=== PATIENT | female | born 1995 | race Caucasian/White ===

== ENCOUNTER 2021-10-18 13:18 | Emergency (ER) | payer BC, SELFPAY ==
[2021-10-18 13:39] VITALS: BP 135/80; PULSE 66; RESP 16; TEMP 36.7; O2SAT 99; BMI 19.4
--- NOTE | 2021-10-18 14:10 | ED_ITS ---
HPI - General Adult General Time Seen by Provider: 14:10 Date Seen: 10/18/21 Chief complaint: Vaginal Bleeding Stated complaint: Miscarriage Time Seen by Provider: 10/18/21 14:09 Source: patient and RN notes reviewed Mode of arrival: ambulatory Limitations: no limitations History of Present Illness HPI narrative: Kalpesh is a 26-year-old female with vaginal bleeding in early . This is her 1st . Her last menstrual period was September 05. She started bleeding 2 days ago. It is about what she would consider moderate to heavy. There has been a few small clots. Today she started having left lower quadrant abdominal pain. She presented to Urgent Care and was referred here due to the pain. She is not bleeding heavy to the point that she is feeling lightheaded or dizzy. She was referred from urgent care to get pelvic imaging. She has not had any care yet, was planning on doing her care through [facility]. No trauma, no history of STIs. Related Data Home Medications Medication Instructions Recorded Confirmed clindamycin 1 %-benzoyl peroxide 5 topical 10/18/21 10/18/21 % topical gel prenat.vits,celsa,aeo-[id number]-emtld 1 tab PO QDAY 10/18/21 10/18/21 Allergies Allergy/AdvReac Type Severity Reaction Status Date / Time No Known Drug Allergies Allergy Verified 10/18/21 12:45 Review of Systems Status of ROS: Reports: 6 or more systems reviewed and unremarkable except as noted in History and below Exam Const: Vital Signs, click to edit/add: Vital Signs - 24 hr 10/18/21 13:39 Temperature 98.0 F Pulse Rate [Right Pulse Oximeter] 66 Respiratory Rate 16 Blood Pressure [Ri ght Upper Arm] 135/80 Pulse Oximetry 99 Oxygen Delivery Me thod Room Air Documenting provider has reviewed patient's vital signs: yes Common normals: no apparent distress, average body habitus, oriented x3, no limitations, healthy appearing and alert General appearance: cooperative, comfortable and well kempt HENMT: Common normals: normocephalic, head/scalp atraumatic and hearing grossly normal bilaterally Head and scalp: normocephalic and atraumatic Eye: Common normals: PERRL, EOMs intact bilaterally, conjunctivae normal and no scleral icterus Conjunctiva: conjunctiva(e) normal Pupil: PERRL Neck & C-Spine: Common normals: full ROM, no lymphadenopathy, supple, no meningeal signs, no JVD and thyroid normal Thyroid: thyroid normal Resp: Common normals: normal respiratory effort, no retractions, no use of accessory muscles and clear to auscultation bilaterally Auscultation: clear to auscultation bilaterally Cardio: Common normals: no JVD, regular rate, regular rhythm, S1 normal heart sound, S2 normal heart sound, no gallops, no clicks and no murmurs Rate: regular rate Rhythm: regular rhythm Heart sounds: S1 normal and S2 normal GI: Common normals: Normal to inspection, nondistended, normoactive bowel sounds present, soft to palpation, no hepatosplenomegaly and no masses Palpation: soft, tender (Left lower quadrant) and no hepatosplenomegaly Extremity: Common normals: normal to inspection, full ROM, normal capillary refill, no joint enlargement, no clubbing, cyanosis or edema, no calf tenderness and no pedal edema Neuro: Common normals: oriented x3 Sensorium/orientation: alert Meningeal signs: no meningeal signs Speech: speech normal Gait (neuro): normal gait Psych: Appearance: well ket Course Course Hospital Course: Will Salagen IV, get appropriate blood work including her blood type and Rh, quantitative hCG. We will need a pelvic ultrasound to rule out ectopic and she does understand that. If this should be an ectopic , will consult with OB as management. Patient obviously is sad and tearful about this, I did share my condolences with her. At minimum, we did review that this certainly sounds to be a miscarriage. Will await are pending labs and the ultrasound to guide therapy accordingly. Reevaluation(s) Reevaluation #1: Reviewed with patient that the radiologist is just reading her pelvic ultrasound but the preliminary report is that there is no ectopic. We are still awaiting her quantitative hCG, blood type is A positive. Reviewed that she would not need RhoGAM. Time: 16:07 Vital Signs Vital signs: Initial Vital Signs Temperature 98.0 F 10/18/21 13:39 Temperature Source Temporal Artery Scan 10/18/21 13:39 Pulse Rate 66 10/18/21 13:39 Pulse Rhythm 10/18/21 13:39 Pulse Strength 3+ Normal 10/18/21 13:39 Respiratory Rate 16 10/18/21 13:39 Blood Pressure 135/80 10/18/21 13:39 Blood Pressure Mean 98 10/18/21 13:39 Blood Pressure Position Sitting 10/18/21 13:39 Pulse Oximetry 99 10/18/21 13:39 Oxygen Delivery Method 10/18/21 13:39 Vital Signs Temperature 98.0 F 10/18/21 13:39 Pulse Rate 66 10/18/21 13:39 Respiratory Rate 16 10/18/21 13:39 Blood Pressure 135/80 10/18/21 13:39 Pulse Oximetry 99 10/18/21 13:39 Oxygen Delivery Method 10/18/21 13:39 Temperature 98.0 F 10/18/21 13:39 Pulse Rate 66 10/18/21 13:39 Respiratory Rate 16 10/18/21 13:39 Blood Pressure 135/80 10/18/21 13:39 Pulse Oximetry 99 10/18/21 13:39 Oxygen Delivery Method 10/18/21 13:39 Medical Decision Making Lab Data Lab results reviewed: Yes I reviewed the patient's lab results Labs: Lab Results 10/18/21 10/18/21 10/18/21 Range/Units 14:30 14:30 14:30 WBC 5.38 (4.50-11.00) K/uL RBC 4.25 (4.00-5.20) m/uL Hgb 13.1 (12.0-16.0) gm/dL Hct 39.4 (33.0-51.0) % MCV 93 (80-100) fL MCH 31 (26-34) pg MCHC 33 (32-36) gm/dL RDW Coeff of Julian 11.5 (11.5-15.5) % Plt Count 162 (140-440) K/uL Neut % (Auto) 72.2 H (42.0-72.0) % Lymph % (Auto) 18.6 L (20-44) % [place] % (Auto) 8.2 (0.0-11.0) % Eos % (Auto) 0.2 (0.0-7.0) % Baso % (Auto) 0.6 (0.0-3.0) % Neut # (Auto) 3.90 (1.7-7.0) K/uL Lymph # (Auto) 1.00 (0.90-2.90) K/uL [place] # (Auto) 0.40 (0.00-0.90) K/UL Eos # (Auto) 0.01 (0.00-0.50) K/uL Baso # (Auto) 0.03 (0.00-0.30) K/uL Abs Immat Gran (auto) 0.01 (0.00-0.30) K/uL Sodium (135-149) mmol/L Potassium (3.6-5.1) mmol/L Chloride (96-114) mmol/L Carbon Dioxide (20-32) mmol/L BUN (5-24) mg/dL Creatinine (0.5-1.5) mg/dL Estimated Creat Clear Estimated GFR ml/min Glucose (60-115) mg/dL Calcium (8.4-10.6) mg/dL HCG, Quant 10.48 mIU/mL Blood Type A Positive 10/18/21 Range/Units 14:30 WBC (4.50-11.00) K/uL RBC (4.00-5.20) m/uL Hgb (12.0-16.0) gm/dL Hct (33.0-51.0) % MCV (80-100) fL MCH (26-34) pg MCHC (32-36) gm/dL RDW Coeff of Julian (11.5-15.5) % Plt Count (140-440) K/uL Neut % (Auto) (42.0-72.0) % Lymph % (Auto) (20-44) % [place] % (Auto) (0.0-11.0) % Eos % (Auto) (0.0-7.0) % Baso % (Auto) (0.0-3.0) % Neut # (Auto) (1.7-7.0) K/uL Lymph # (Auto) (0.90-2.90) K/uL [place] # (Auto) (0.00-0.90) K/UL Eos # (Auto) (0.00-0.50) K/uL Baso # (Auto) (0.00-0.30) K/uL Abs Immat Gran (auto) (0.00-0.30) K/uL Sodium 139 (135-149) mmol/L Potassium 3.8 (3.6-5.1) mmol/L Chloride 105 (96-114) mmol/L Carbon Dioxide 25 (20-32) mmol/L BUN 13 (5-24) mg/dL Creatinine 0.7 (0.5-1.5) mg/dL Estimated Creat Clear 103.73 Estimated GFR 121 ml/min Glucose 98 (60-115) mg/dL Calcium 9.0 (8.4-10.6) mg/dL HCG, Quant mIU/mL Blood Type Imaging Data US - abdomen: Attestation: I have reviewed the pertinent imaging results. Radiologist's impression: Patient: KALPESH SHORT Facility:?[facility] Patient ID:?[id number] Site Patient ID:?[id number]. Site :?[id number] Study:?US OB Pelvis -10/18/2021 3:30:16 PM Ordering Physician:?Laine Díaz Final Report: INDICATION: Left lower quadrant pain and bleeding. LMP 09/05/2021. Beta hCG not provided. COMPARISON: None. TECHNIQUE: 2D roberts scale and color Doppler images were acquired of the pelvis using a transabdominal and transvaginal approach. FINDINGS: Sonographic images demonstrate a normal size and smooth outer contour of the uterus. The uterus is anteverted in position. The uterus measures 7.0 cm in length by 4.5 cm in AP diameter by 5.6 cm in transverse dimension. The myometrium has uniform echotexture. The endometrial lining measures 5 mm in composite thickness. No intrauterine gestational sac identified. There is a 0.8 cm ovoid echogenic lesion in the mid endometrial canal. There are two small cystic spaces in the upper cervix which are likely nabothian cysts. The right ovary measures 3.1 x 1.4 x 1.7 cm in size and the left ovary measures 3.3 x 1.6 x 1.8 cm in size. The ovaries demonstrate normal arterial and venous blood flow on color Doppler analysis. There is a 1.7 x 1.2 x 1.3 cm hypoechoic lesion in the left ovary which likely represents a corpus luteum. No suspicious adnexal mass. Trace free fluid in the cul-de-sac. IMPRESSION: 1. No intrauterine gestational sac identified. Probable small nabothian cysts in the upper cervix. Correlate with serum beta HCG levels and follow-up imaging as clinically indicated. 2. Subcentimeter echogenic lesion in the mid endometrial canal may represent a polyp or focus of blood products. 3. 1.7 cm hypoechoic lesion in the left ovary likely represents a corpus luteum. No suspicious adnexal mass. Dictated by Amara Curran MD @ 10/18/2021 4:07:56 PM (Electronic Signature) Discharge Plan Discharge Clinical Impression: Miscarriage Condition: Stable Instructions: Miscarriage (ED) Additional Instructions: Need to schedule a clinic followup with OB in 1-2 weeks. The hCG level should be followed to make sure it is back to normal, can be reviewed with the OB Gyne follow-up. Did any point her bleeding is becoming so heavy that you are symptomatic with lightheadedness, dizziness, feeling like he could pass out, do recommend re-evaluation. Activity Level: Activity as Tolerated Discharge Diet: Regular Prescriptions: No Action clindamycin-benzoyl peroxide 1-5 % gel topical Label Comments: Apply topically to affected area(s) 2 times daily. prenat.vits,celsa,cxi-gzte-emyer Tablet 1 tab PO QDAY Follow Up/Referrals: Provider,Not a Local [Referring] - Stand Alone Forms: [employer] Info Instructions
--- NOTE | 2021-10-18 14:19 | CRLHL7_ITS ---
For Patients: As a result of the Century Cures Act, medical imaging exams and procedure reports are released immediately into your electronic medical record. You may view this report before your referring provider. If you have questions, please contact your health care provider. INDICATION: Left lower quadrant pain and bleeding. LMP 09/05/2021. Beta hCG not provided. COMPARISON: None. TECHNIQUE: 2D roberts scale and color Doppler images were acquired of the pelvis using a transabdominal and transvaginal approach. FINDINGS: Sonographic images demonstrate a normal size and smooth outer contour of the uterus. The uterus is anteverted in position. The uterus measures 7.0 cm in length by 4.5 cm in AP diameter by 5.6 cm in transverse dimension. The myometrium has uniform echotexture. The endometrial lining measures 5 mm in composite thickness. No intrauterine gestational sac identified. There is a 0.8 cm ovoid echogenic lesion in the mid endometrial canal. There are two small cystic spaces in the upper cervix which are likely nabothian cysts. The right ovary measures 3.1 x 1.4 x 1.7 cm in size and the left ovary measures 3.3 x 1.6 x 1.8 cm in size. The ovaries demonstrate normal arterial and venous blood flow on color Doppler analysis. There is a 1.7 x 1.2 x 1.3 cm hypoechoic lesion in the left ovary which likely represents a corpus luteum. No suspicious adnexal mass. Trace free fluid in the cul-de-sac. IMPRESSION: 1. No intrauterine gestational sac identified. Probable small nabothian cysts in the upper cervix. Correlate with serum beta HCG levels and follow-up imaging as clinically indicated. 2. Subcentimeter echogenic lesion in the mid endometrial canal may represent a polyp or focus of blood products. 3. 1.7 cm hypoechoic lesion in the left ovary likely represents a corpus luteum. No suspicious adnexal mass. Dictated by Amara Curran MD @ 10/18/2021 4:07:56 PM (Electronically Signed)
[2021-10-18 15:14] LABS: Chloride* 105 mmol/L (96-114); Potassium* 3.8 mmol/L (3.6-5.1); Sodium* 139 mmol/L (135-149)
[2021-10-18 15:15] LABS: Basophils Absolute Auto 0.03 K/uL (0.00-0.30); Basophils Percent Auto 0.6 % (0.0-3.0); Eosinophils Absolute Auto 0.01 K/uL (0.00-0.50); Eosinophils Percent Auto 0.2 % (0.0-7.0); Hematocrit 39.4 % (33.0-51.0); Hemoglobin* 13.1 gm/dL (12.0-16.0); Immature Granulocytes Abs Auto 0.01 K/uL (0.00-0.30); Lymphocytes Percent Auto 18.6 % (20-44); Mean Corpuscular HGB Conc 33 gm/dL (32-36); Mean Corpuscular Hemoglobin 31 pg (26-34); Mean Corpuscular Volume 93 fL (80-100); Monocytes Percent Auto 8.2 % (0.0-11.0); Neutrophils Percent Auto 72.2 % (42.0-72.0); Platelet Count* 162 K/uL (140-440); RDW Coefficient of Variation % 11.5 % (11.5-15.5); Red Blood Count 4.25 m/uL (4.00-5.20); White Blood Count* 5.38 K/uL (4.50-11.00)
[2021-10-18 15:17] LABS: Blood Urea Nitrogen* 13 mg/dL (5-24); Carbon Dioxide* 25 mmol/L (20-32); Creatinine* 0.7 mg/dL (0.5-1.5); Est. Creatinine Clearance* 103.73; Estimated Glomerular Filt Rate 121 ml/min; Glucose* 98 mg/dL (60-115)
[2021-10-18 15:29] LABS: Slide Review Reflex No
[2021-10-18 16:13] LABS: HCG Quantitative* 10.48 mIU/mL
--- NOTE | 2021-10-18 17:09 | ED.NURSE ---
1430-#20G IV established in R FA by JAIME De Paz. Bloodwork drawn from this IV at that time.
[2021-10-18 17:16] VITALS: BP 135/80; PULSE 66; RESP 16; TEMP 36.7
== END 2021-10-18 17:16 | disposition home or self-care (01) ==
PROVIDERS: Emergency Provider Family Medicine; PCP Family Medicine
DX: O03.9 Complete or unspecified spontaneous abortion without complication (principal)
CPT/HCPCS: 36415; 76801; 76817; 80048; 84702; 85025; 86900; 86901; 93976; 99284

== ENCOUNTER 2021-11-03 15:45 | Outpatient (CLI) | payer BC, SELFPAY ==
[2021-11-03 22:12] LABS: HCG Quantitative* < 2.39 mIU/mL
== END 2021-11-03 15:46 | disposition home or self-care (01) ==
LOC: LKVREF 15:46
PROVIDERS: PCP Family Medicine; Visit Provider Registered Nurse
DX: O03.9 Complete or unspecified spontaneous abortion without complication (principal)
CPT/HCPCS: 84702

== ENCOUNTER 2021-11-04 09:06 | Outpatient (CLI) | payer BC, SELFPAY | END 2021-11-04 09:07 | disposition home or self-care (01) | LOC: FRMREF 09:07 | PROVIDERS: PCP Family Medicine; Visit Provider Registered Nurse | DX: O03.9 Complete or unspecified spontaneous abortion without complication (principal) | CPT/HCPCS: 84443 ==

== ENCOUNTER 2022-03-04 08:07 | Outpatient (CLI) | payer BC, SELFPAY ==
[2022-03-04 12:56] LABS: HCG Quantitative* 34.49 mIU/mL
== END 2022-03-04 08:08 | disposition home or self-care (01) ==
LOC: LKVREF 08:09
PROVIDERS: PCP Family Medicine; Visit Provider Obstetrics & Gynecology
DX: O20.9 Hemorrhage in early pregnancy, unspecified (principal)
CPT/HCPCS: 84702

== ENCOUNTER 2022-03-06 11:28 | Outpatient (CLI) | payer BC, SELFPAY ==
[2022-03-06 12:37] LABS: HCG Quantitative* 11.46 mIU/mL
== END 2022-03-06 11:29 | disposition home or self-care (01) ==
LOC: LAB 11:34
PROVIDERS: PCP Family Medicine; Visit Provider Obstetrics & Gynecology
DX: O02.0 Blighted ovum and nonhydatidiform mole (principal)
CPT/HCPCS: 84702

== ENCOUNTER 2022-09-27 16:40 | Outpatient (CLI) | payer BC, SELFPAY ==
--- NOTE | 2022-09-27 17:00 | CRLHL7_ITS ---
For Patients: As a result of the Century Cures Act, medical imaging exams and procedure reports are released immediately into your electronic medical record. You may view this report before your referring provider. If you have questions, please contact your health care provider. INDICATION: First trimester scan, establish dates. COMPARISON: None. TECHNIQUE: Real-time roberts-scale imaging of the pelvis was performed. FINDINGS: Sonographic imaging demonstrates a single living intrauterine gestation. The embryo demonstrates a regular cardiac rate measuring 173 beats per minute. The embryo`s crown-rump length measurement of 2.0 cm corresponds to a gestational age of 8 weeks 4 days with a sonographic due date of 05/05/2023. There is a normal-appearing yolk sac. There are no gross abnormalities noted within the embryo at this early state of development. The gestational sac has a normal appearance. There is no evidence of a perigestational hemorrhage. The amount of fluid within the sac appears appropriate for gestational age. The cervix is closed. The myometrium appears normal. Normal right ovary. Left ovary not visualized. There are no suspicious fluid collections noted in the cul-de-sac. IMPRESSION: Normal first trimester OB ultrasound exam. Gestational age calculated at 8 weeks 4 days with a sonographic due date of 05/05/2023. Dictated by Jarvis Quinn MD @ 09/28/2022 8:48:42 AM (Electronically Signed)
== END 2022-09-27 16:41 | disposition home or self-care (01) ==
LOC: US 16:41
PROVIDERS: PCP Family Medicine; Visit Provider Registered Nurse
DX: Z34.91 Encounter for supervision of normal pregnancy, unspecified, first trimester (principal); Z3A.08 8 weeks gestation of pregnancy
CPT/HCPCS: 76817; 86703; 86803; 86850; 86900; 86901; 87086; 87340; 87491; 87591

== ENCOUNTER 2022-09-27 18:04 | Outpatient (CLI) | payer BC, SELFPAY ==
[2022-09-27 21:29] LABS: Chlamydia DNA Amplified* NOT DETECTED (No Detected); GC DNA Amplified* NOT DETECTED (No Detected)
== END 2022-09-27 18:05 | disposition home or self-care (01) ==
PROVIDERS: PCP Family Medicine; Visit Provider Registered Nurse
DX: Z34.91 Encounter for supervision of normal pregnancy, unspecified, first trimester (principal); Z3A.08 8 weeks gestation of pregnancy
CPT/HCPCS: 86592; 86703; 86762; 86787; 86803; 86850; 86900; 86901; 87086; 87340; 87491; 87591

== ENCOUNTER 2022-12-21 09:05 | Outpatient (CLI) | payer BC, SELFPAY ==
--- NOTE | 2022-12-21 09:15 | CRLHL7_ITS ---
For Patients: As a result of the Century Cures Act, medical imaging exams and procedure reports are released immediately into your electronic medical record. You may view this report before your referring provider. If you have questions, please contact your health care provider. INDICATION: Evaluate anatomy. COMPARISON: 09/27/2022 TECHNIQUE: Real time roberts scale imaging of the fetus was performed as well as color Doppler analysis of the umbilical vessels. FINDINGS: Sonographic imaging demonstrates a single living intrauterine gestation. Fetus demonstrates a regular cardiac rate of 145 beats per minute. Fetus has a vertex position. The placenta lies posteriorly without evidence of placenta previa. The edge of the placenta is located 6.8 cm from the internal cervical os. Amniotic fluid volume appears normal. Single deepest vertical pocket: 5.0 cm. The cervix is closed and measures 4.1 cm in length. The composite ultrasound gestational age is calculated at 21 weeks 3 days with an estimated sonographic due date of 04/30/2023. The estimated weight is 401 grams which lies at the 52nd %. The following biometric measurements were obtained: Biparietal diameter: 5.3 cm/22 weeks 0 days 83rd% Head circumference: 19.6 cm/21 weeks 5 days 75th% Abdominal circumference: 16.3 cm/21 weeks 3 days 57th% Femur length: 3.4 cm/20 weeks 4 days 26th% The HC/AC ratio measures: 1.20 range (1.06-1.24) On anatomic survey, there is a normal appearance of the cerebral ventricles, cavum septi pellucidi, cisterna magna and cerebellum. The nose, lips, and facial profile appear normal. The cervical, thoracic and lumbar spine are well visualized and appear normal. There is a normal four-chamber heart view and the left and right ventricular outflow tracts appear normal. The diaphragm and stomach appear normal. The kidneys and bladder also appear normal. There is a normal three-vessel cord and cord insertion site. The four extremities appear normal. IMPRESSION: Normal OB ultrasound exam with concordance of clinical and sonographic dating. No intrinsic abnormalities noted on anatomic survey. Dictated by Jarvis Quinn MD @ 12/21/2022 10:58:45 AM (Electronically Signed)
== END 2022-12-21 09:06 | disposition home or self-care (01) ==
LOC: US 09:07
PROVIDERS: PCP Family Medicine; Visit Provider Obstetrics & Gynecology
DX: Z34.91 Encounter for supervision of normal pregnancy, unspecified, first trimester (principal)
CPT/HCPCS: 76805

== ENCOUNTER 2023-02-14 08:59 | Outpatient (CLI) | payer BC, SELFPAY | END 2023-02-14 09:00 | disposition home or self-care (01) | LOC: NFLDREF 02-16 05:31 | PROVIDERS: PCP Family Medicine; Referring Provider Family Medicine; Visit Provider Obstetrics & Gynecology | DX: Z36.89 Encounter for other specified antenatal screening (principal); Z34.03 Encounter for supervision of normal first pregnancy, third trimester; Z3A.28 28 weeks gestation of pregnancy | CPT/HCPCS: 86592 ==

== ENCOUNTER 2023-04-05 08:30 | Outpatient (CLI) | payer BC, SELFPAY | END 2023-04-05 08:31 | disposition home or self-care (01) | LOC: NFLDREF 04-07 07:23 | PROVIDERS: PCP Family Medicine; Referring Provider Family Medicine; Visit Provider Advanced Practice Midwife | DX: Z34.93 Encounter for supervision of normal pregnancy, unspecified, third trimester (principal); Z3A.36 36 weeks gestation of pregnancy | CPT/HCPCS: 87081; 87653 ==

== ENCOUNTER 2023-05-04 08:31 | Outpatient (CLI) | payer BC, SELFPAY ==
[2023-05-04] VITALS (24 sets, daily range): BP systolic 136; BP diastolic 79; PULSE 55–88; RESP 18; TEMP 36.7; O2SAT 98–100
[2023-05-04] MEDS: TERBUTALINE 1 MG/ML INJ 0.25 MG SUBCUT (09:48)
--- NOTE | 2023-05-04 11:29 | P.PCN_ITS ---
Procedure Note Time Seen by Provider: 09:50 Date Seen: 05/04/23 Date of procedure: 05/04/23 Will [facility] bill your pro fee for this procedure?: Yes Procedure: Preoperative diagnosis: Nona is a 28-year-old 3 para 0 who is at 40 weeks 0 days gestation today. She had an ultrasound for estimated weight and at that ultrasound she was noted to have a fetus in gonzález breech presentation. Postoperative diagnosis: Vertex presentation Procedure: External cephalic version. Surgeon: Jael De Luna MD 1st assistant hall director: Ayde Rodas CNM Anesthesia: Nitrous gas Procedure description: A nonstress test was performed that was reactive and category 1. Baseline 110's. After a consent form was reviewed and signed for external cephalic version the patient was placed in the dorsal supine position with slight recline. She was given terbutaline subcutaneously 10 minutes prior to the procedure. A bedside ultrasound was performed which showed the fetus in gonzález breech presentation with the head in the maternal left upper quadrant. An attempt at a clockwise roll was performed 1st with pressure being placed on the 's vertex and breech. This was unsuccessful. The heart rate was noted to be in the 110's after attempted clockwise roll x2. A counter-clockwise roll was then attempted x2 and was successful. After the successful version the heart was noted to be in the 80s and the patient was placed in the left lateral position than the right lateral position than on all fours. Once she was placed on all fours the heart rate rebounded from the 80s to 110's and became reactive.
--- NOTE | 2023-05-04 15:34 | PC.OBNST ---
NST Note NST Note Start: 05/04/23 08:34 Freq: ONCE Status: Active Protocol: Document 05/04/23 14:20 JUSTINE (Rec: 05/04/23 15:34 [email or web address] [id number]) NST Note 3 Para (# of births) 0 EDC 05/03/23 Gestational Age In Weeks & Days 40 Weeks & 1 Days Patient Presented with Complaint(s) of Other Other Complaints External Cephalic Version at 40.1 weeks. Pt. had US this morning and was discovered to be Orestes Breech. BPP 8/8. Version was successful. Fetus did experience some stress with the procedure. Intrauterine resuscitation successful and pt. was monitored x 4 hours with a reassuring tracing. Reactive Yes Appropriate for Gestational Age Yes JAIME Jauregui RN Date 05/04/23 Reactive Yes Appropriate for Gestational Age Yes JAIME Jay RN Date 05/04/23 OB NST charge Yes Complete NST Note via Write Note Yes The provider's electronic signature indicates the NST is reactive/appropriate for gestational age. *Note to provider: If an addendum is required, open the patient's chart and click on the note under the Nurse/Allied Health tab.
--- NOTE | 2023-05-04 16:20 | PM.OBLDTN ---
Documented by User: Bonnie Dsouza 05/04/23 17:43 OB - Triage/Final Diagnosis Visit Information Time Seen by Provider: 12:00 Date Seen: 05/04/23 Date of evaluation: 05/04/23 Narrative: The patient is a 28 year old 3 para 0 at 40.1 weeks gestation by LMP, who presents to labor and delivery for External Cephalic Version for gonzález breech lie diagnosed on growth US today. ECV was successful confirmed by bedside US in 2 separate occasions. bradycardia( 80-90) noted after procedure. See MD procedure note. FHT improved with maternal position changes and IVF bolus. Occasional FHT decelerations was also noted after the procedure. FHT remained Category 1 for 2 hours before motoring was discontinued for patient to discharge home. Pt had occasional uterine contractions on the monitor and perceived some of them. On cervical exam pt was 1/40/-3. Gentle membrane sweeping was performed during SVE per pt's request. Discussed risk/ benefit/ alternative to IOL today verses discharging home. Pt and partner opted to have IOL on 05/08/23. Assessment: at 40.1 wk González breech presentation Successful External Cephalic Version FHT: Category 1 SVE :1/40/-3 Shanks Score: 3 Plan: IOL scheduled for 05/08/23 Consented for IOL and waterbirth Reviewed IOL process, labor precautions and weaning signs to report Reason for evaluation: other (External Cervical Version ) Evaluation Cervical dilation (cm): 1 Cervical effacement (%): 40 Vital signs: Vital Signs - 24 hr 05/04/23 08:58 05/04/23 09:03 05/04/23 09:04 Temperature Pulse Rate 55 L Respiratory Rate Blood Pressure 136/79 Pulse Oximetry 100 100 05/04/23 09:08 05/04/23 10:18 05/04/23 10:23 Temperature 98.1 F Pulse Rate Respiratory Rate 18 Blood Pressure Pulse Oximetry 100 100 05/04/23 10:28 05/04/23 10:33 05/04/23 10:38 Temperature Pulse Rate Respiratory Rate Blood Pressure Pulse Oximetry 98 99 100 05/04/23 10:43 05/04/23 10:48 05/04/23 10:53 Temperature Pulse Rate Respiratory Rate Blood Pressure Pulse Oximetry 99 99 99 05/04/23 10:58 05/04/23 11:20 05/04/23 11:25 Temperature Pulse Rate Respiratory Rate Blood Pressure Pulse Oximetry 100 100 100 05/04/23 11:30 05/04/23 11:35 05/04/23 11:40 Temperature Pulse Rate Respiratory Rate Blood Pressure Pulse Oximetry 100 100 100 05/04/23 11:45 05/04/23 11:50 05/04/23 11:55 Temperature Pulse Rate Respiratory Rate Blood Pressure Pulse Oximetry 100 100 100 05/04/23 12:00 05/04/23 12:05 05/04/23 12:10 Temperature Pulse Rate Respiratory Rate Blood Pressure Pulse Oximetry 100 100 100 Fetus (Single) Heart Rate Baseline: 150 Mail Order Clerk Variability: Moderate (6-25) Monitor Accelerations: Present Monitor Decelerations: None (at time of discharge ) Station: -3 Final Diagnosis (1) Successful external cephalic version: Status: Acute Problem details: Cephalic presentation confirmed by bedside US before discharge. IOL scheduled for 05/08/2023. (2) Breech, gonzález: Status: Acute Problem details: Resolved Documented by User: Ayde Rodas CNM 05/04/23 21:19 OB - Triage/Final Diagnosis Visit Information Narrative: The patient is a 28 year old 3 para 0 at 40.1 weeks gestation by LMP, who presents to labor and delivery for External Cephalic Version for gonzález breech lie diagnosed on growth US today. ECV was successful confirmed by bedside US in 2 separate occasions. bradycardia( 80-90) noted after procedure. See MD procedure note. FHT improved with maternal position changes and IVF bolus. Occasional FHT decelerations was also noted after the procedure. FHT remained Category 1 for greater than 2 hours before motoring was discontinued for patient to discharge home. Pt had occasional uterine contractions on the monitor and perceived some of them. On cervical exam pt was 1/40/-3. Gentle membrane sweeping was performed during SVE per pt's request. Discussed risk/ benefit/ alternative to IOL today verses discharging home. Pt and partner opted discharge home and to schedule an IOL. Consent signed and scheduled for 05/08/23. Assessment: at 40.1 wk González breech presentation on admission. Successful External Cephalic Version FHT: Category 1 SVE :40/-3 Shanks Score: 3 Plan: IOL scheduled for 05/08/23 Consented for IOL and waterbirth Reviewed IOL process, labor precautions and warning signs to report I, Ayde Rodas APRN CNM, was present for visit and have reviewed and agree with documentation by certified nurse midwifery?student. Add the following documentation: US results were reviewed in triage as they were not available before leaving the clinic: González bermudez, BPP /, EFW 14%. Assistance with the ECV was provided by Ck Rodas APRN CNM. Final Diagnosis (1) Successful external cephalic version: Status: Acute Problem details: Cephalic presentation confirmed by bedside US before discharge. IOL scheduled for 05/08/2023. (2) gonzález Bermudez: Status: Acute Problem details: Resolved
== END 2023-05-04 15:16 | disposition home or self-care (01) ==
LOC: OB OUT 08:32 → OB 14:37
PROVIDERS: PCP Family Medicine; Visit Provider Obstetrics & Gynecology
DX: O32.1XX0 Maternal care for breech presentation, not applicable or unspecified (principal); Z3A.40 40 weeks gestation of pregnancy
CPT/HCPCS: 59025; 59412; 76815; 76816; 76819; G0463; J3105

== ENCOUNTER 2023-05-07 16:42 | Inpatient (IN) | payer BC, SELFPAY ==
[2023-05-07] VITALS (36 sets, daily range): BP systolic 117–181; BP diastolic 63–101; PULSE 49–84; RESP 14–18; TEMP 36.6–37.2; O2SAT 94; BMI 25.1
[2023-05-07 16:41] LABS: Hematocrit 39.6 % (33.0-51.0); Hemoglobin* 13.9 gm/dL (12.0-16.0); Mean Corpuscular HGB Conc 35 gm/dL (32-36); Mean Corpuscular Hemoglobin 32 pg (26-34); Mean Corpuscular Volume 91 fL (80-100); Platelet Count* 162 K/uL (140-440); Red Blood Count 4.35 m/uL (4.00-5.20); White Blood Count* 13.93 K/uL (4.50-11.00)
[2023-05-07 16:45] LABS: Slide Review Reflex No
[2023-05-07] MEDS: LABETALOL HCL 5 MG/ML inj IVP ×3 (16:53→18:09)
[2023-05-07 16:58] LABS: Alanine Aminotransferase* 26 U/L (4-35); Aspartate Amino Transferase* 40 U/L (12-35); Blood Urea Nitrogen* 24 mg/dL (5-24); Creatinine* 0.8 mg/dL (0.5-1.5); Estimated Glomerular Filt Rate 102 ml/min
[2023-05-07] MEDS: MAGNESIUM IV 4 GM/100 ML PIGGYBACK IVPB (17:03)
[2023-05-07] MEDS: LACTATED RINGERS 1000 ML 1,000 ML 75 ML IV (17:07)
--- NOTE | 2023-05-07 17:22 | P.LDBA_ITS ---
Subjective History of Present Illness Date Seen: 05/07/23 Narrative: Patient is being admitted to Labor and Delivery for contractions and severe range BP's. She is a 28 year old at 40.4 weeks gestation. She began gilmer this morning about 0200 and felt contractions got stronger around 1400 today. On admission to triage she had severe range BP's. Started on IV Magnesium and given Labetalol IV times two. Last BP's were below severe range but elevated. She has had an uncomplicated otherwise. Her full history and physical was dictated by Luigi Bhat on 04/12/23. Please see this for details. Dr. Edmondson was consulted on her care and will be managing her magnesium while inpatient. CNM to maage labor at this time. Specific Issues/Plans G 3 P 0020 : Haritha H&P done by JAKE Gonzalez on 04/12/2023 1. H/o 2 chemical pregnancies. 09/2021, 02/2022 2. Measuring small for dates at 40 wks. Growth US ordered. Pap due COVID: Completed, not boosted. Recommended Influenza: 11/30/2022 Tdap: 02/28/2023 RSV: declines OB - Problem Based A/P Additional Plan (1) Severe pre-eclampsia: Status: Acute (2) Pain during labor: Status: Acute Plan Assessment:?? at 40.4 weeks gestation?? GBS Negative? Patient is coping well with challenges of labor.?? Labor type: Spontaneous, Early labor? Category 1 FHR pattern.? complicated by: Severe Preeclampsia H/o 2 chemical pregnancies. 09/2021, 02/2022 Measuring small for dates at 40 wks. Growth US 14%. Plan:?? * ?Admit to L & D? * IV access: two IV sites placed, IV Magnesium infusing. * Monitoring per policy: continuous ? * Candidate for analgesia of choice.? Planning unmedicated for pain management * Expectant management at this time, consider IV Pitocin if labor slows * Monitor blood pressures per protocol. Repeat labs every 6 hours. * Patient encouraged to reposition and ambulate to promote physiologic labor and . * Anticipate ? Delivery/Labor/Induction Plan Plan: expectant management OB Exam Physical Exam Vital signs: Temp Pulse Resp BP 97.9 F 56 L 14 148/81 H 05/07/23 16:03 05/07/23 17:11 05/07/23 16:03 05/07/23 17:11 Narrative: Vitals Reviewed Constitutional:? Alert and oriented x3 HEENT:? Normocephalic, atraumatic Neck:? Supple Lungs:? Clear to auscultation bilaterally Heart:? Regular rate and rhythm, no murmur, rub or gallop Abdomen:? Soft, nontender, and gravid. Vertex by Pierce's, confirmed with cervical exam. Extremities:? No edema or erythema Cervix: 3 cm/70%/-2 station/vertex NST: 120 bpm/moderate variability/+accelerations/-decelerations/moderate contractions Detailed Labor and Delivery Exam Patient Gravid: Yes
[2023-05-07] MEDS: MAGNESIUM Infusion 40 GM/1,000 ML IV.SOLN IVPB (17:33)
[2023-05-07 18:02] LABS: Total Protein Urine 107 mg/dL
[2023-05-07 18:03] LABS: Creatinine Urine 93.6 mg/dL
--- NOTE | 2023-05-07 21:19 | PM.OBPNL ---
Subjective Date Seen: 05/07/23 Narrative: ?Nona is coping well with labor pain/contractions. ?Haritha is with her for support. ?She would like to continue with repositioning, breathing and relaxation for comfort and pain management.?She continues to contract regularly. BP is stable at this time, Magnesium continues per protocol. Objective Exam: VSS, afebrile General Appearance:? Calm, cooperative. ?No acute distress. ? Psychiatric Exam: Alert and oriented, appropriate affect Abdomen: Gravid Ctx: ?Q 3-5 min apart. ? ? ?Strong FHTs: ?Baseline: 125. ? ? Variability: moderate. ?Accels: +. ? ?Decels: ?-. SVE: 3.5/80/-2 Membranes: Intact ? Vital Signs: Last Vital Signs Temp 98.6 F 05/07/23 18:24 Pulse 63 05/07/23 21:11 Resp 18 05/07/23 18:24 BP 131/74 05/07/23 21:11 Plan Plan: Assessment:?? at 40.4wks gestation?? GBS neg Patient is coping well with challenges of labor.?? Labor type: Spontaneous, Early labor? Category 1 FHR pattern.? complicated by: H/o 2 chemical pregnancies. 09/2021, 02/2022 Measuring small for dates at 40 wks. Growth US 14%. Labor complicated by: Severe Preeclampsia? Plan:?? Preeclampsia labs repeated every 6 hours. Magnesium continues per protocol. BP monitoring per protocol, treat per protocol. Continue with routine intrapartum cares as ordered.?? Patient encouraged to move and change positions to promote physiologic labor and .?? Nonpharmacologic comfort measures per patient preference. Candidate for analgesia of choice if desired. Anticipate progress to NVD. ?
[2023-05-07 23:40] LABS: Hematocrit 36.6 % (33.0-51.0); Hemoglobin* 12.8 gm/dL (12.0-16.0); Mean Corpuscular HGB Conc 35 gm/dL (32-36); Mean Corpuscular Hemoglobin 32 pg (26-34); Mean Corpuscular Volume 92 fL (80-100); Platelet Count* 154 K/uL (140-440); Red Blood Count 3.98 m/uL (4.00-5.20); White Blood Count* 16.04 K/uL (4.50-11.00)
[2023-05-07 23:43] LABS: Slide Review Reflex No
[2023-05-07 23:55] LABS: Aspartate Amino Transferase* 36 U/L (12-35); Creatinine* 0.8 mg/dL (0.5-1.5); Est. Creatinine Clearance* 104.67; Estimated Glomerular Filt Rate 102 ml/min
[2023-05-07 23:56] LABS: Alanine Aminotransferase* 25 U/L (4-35); Blood Urea Nitrogen* 21 mg/dL (5-24)
[2023-05-08] VITALS (162 sets, daily range): BP systolic 92–153; BP diastolic 50–108; PULSE 34–89; RESP 16–18; TEMP 36.2–37; O2SAT 85–98
[2023-05-08 00:04] LABS: Magnesium* 5.9 mg/dL (1.5-2.6)
--- NOTE | 2023-05-08 00:52 | PM.OBPNL ---
Subjective Date Seen: 05/08/23 Narrative: ?Nona is coping well with labor pain/contractions. ?Haritha is with her for support. ?She would like to have an epidural placed for comfort and pain management.?She continues to contract, has strong contraction but recently they became more irregular. Nona says they space more out when she sits but she is feeling tired so needs to sit for a time. She remains 3.5cm, with no change since last exam. Discussed starting IV Pitocin for augmentation and they are agreeable to this plan. Risks and benefits were reviewed. Objective Exam: VSS, afebrile General Appearance:? Calm, cooperative. ?No acute distress. ? Psychiatric Exam: Alert and oriented, appropriate affect Abdomen: Gravid Ctx: ?Q 2-5 min apart. ? ? ?Strong FHTs: ?Baseline: 125. ? ? Variability: moderate. ?Accels: +. ? ?Decels: ?rare late decels. SVE: 3.5/80/-2 Membranes: Intact ? Vital Signs: Last Vital Signs Temp 98.9 F 05/07/23 22:25 Pulse 58 L 05/08/23 00:41 Resp 16 05/07/23 22:25 BP 141/81 H 05/08/23 00:41 Pulse Ox 94 05/07/23 22:25 Plan Plan: Assessment:?? at 40.5 gestation?? GBS negative Patient is coping with challenges of labor.?? Labor type: Spontaneous, Early labor? Category 2 FHR pattern.? complicated by: H/o 2 chemical pregnancies. 09/2021, 02/2022 Measuring small for dates at 40 wks. Growth US 14%. Labor complicated by: Severe Preeclampsia? Plan:?? Start Pitocin augmentation per protocol. Risks, benefits and alternatives reviewed with patient and partner. Epidural placement by anesthesia for pain management. Continue with routine intrapartum cares as ordered.?? Patient encouraged to move and change positions to promote physiologic labor and .?? Monitoring BP and labs per protocol. IV Magnesium infusing. Anticipate progress to NVD. ?
[2023-05-08] MEDS: OXYTOCIN 30 unit/500 ML in NS 30 UNIT/500 ML BAG IVPB (01:01)
[2023-05-08] MEDS: LIDOCAINE 2% (PF) 5 ML VIAL EPIDURAL (01:58)
[2023-05-08] MEDS: ROPIVACAINE 0.2% 100 ml 100 ML 12 MG EPIDURAL ×2 (02:06→09:29)
--- NOTE | 2023-05-08 02:14 | P.ANBPRC_ITS ---
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 Marital status: . Partner: Haritha: [employer]. Lives with: in [place]. Pets: None. Jew/cultural needs: No. Chemical or radiation exposure: No. Pre- tobacco use: No. Pre- alcohol use: No. Current tobacco use: No. Current alcohol use: No. Recreational drug use: No. Dietary restrictions: Avoids dairy. Blood transfusion acceptable in an emergency: Yes. Planning to breastfeed: Yes. PSYCHOSOCIAL HISTORY: History of depression or currently depressed: No. Current physical, emotional, or sexual mistreatment: No. Problems that will make it hard to make it to appointments: No. What is your current living situation?: I presently have a place to live Problems where you live: no known problems In the past 12 months, utilities in danger of being shut off: no In past 12 months, lack of transportation kept you from medical appts, meetings, work, or getting things needed for daily living: no In the past 12 mos, have been you worried that your food would run out before you had money to buy more?: never true In the past 12 mos, the food you bought just didn't last and you didn't have money to buy more?: never true Smoking Status: Never smoker How often do you have a drink containing alcohol: never AUDIT-C Alcohol total score: 0 Non-prescribed substance use: denies use How often does anyone, including family, friends and others, physically hurt you : never How often does anyone, including family, friends and others, insult or talk down to you: never How often does anyone, including family, friends and others, threaten you with harm: never How often does anyone, including family, friends and others, scream or curse at you: never Little interest or pleasure in doing things: not at all Feeling down, depressed, or hopeless: not at all Meds Home Medications and Allergies Home Medications Medication Instructions Recorded Confirmed Type clindamycin 1 %-benzoyl peroxide 5 1 applic topical PRN PRN 10/18/21 05/07/23 History % topical gel prenat.vits,celsa,mor-jxse-bttga 1 tab PO QDAY 10/18/21 05/07/23 History calcium carb and lactate 200 1 tab PO DAILY 04/12/23 05/07/23 History mg-vitamin D3 6.25 mcg (250 unit) tablet Allergies Allergy/AdvReac Type Severity Reaction Status Date / Time No Known Drug Allergies Allergy Verified 05/07/23 16:09 Results Labs Labs: Laboratory Results - last 24 hr 05/07/23 05/07/23 05/07/23 16:35 23:35 Unknown WBC 13.93 H 16.04 H RBC 4.35 3.98 L Hgb 13.9 12.8 Hct 39.6 36.6 MCV 91 92 MCH 32 32 MCHC 35 35 Plt Count 162 154 BUN 24 21 Creatinine 0.8 0.8 Estimated Creat Clear 104.67 Estimated GFR 102 102 Magnesium 5.9 H* AST 40 H 36 H ALT 26 25 Urine Creatinine 93.6 Protein/Creatinin Ratio 1.10 H Urine Total Protein 107 Blood Type A Positive Antibody Screen NEGATIVE Vital Signs Vital Signs: Last Vital Signs Temp 98.2 F 05/08/23 01:16 Pulse 67 05/08/23 02:14 Resp 18 05/08/23 01:16 BP 137/83 05/08/23 02:14 Pulse Ox 94 05/07/23 22:25 Weight: 74.933 kg Height: 172.72 cm Anesthesia Procedures Epidural Insertion Patient Location: OB Start Time: : Stop Time: : Start Date: 05/08/23 Stop Date: 05/08/23 Reason for Block: procedure for pain Patient Position: sitting Performed By: Kristy Mattson Preanesthetic Checklist: IV checked, risks and benefits discussed, monitors and equipment checked, pre-op evaluation, timeout performed and anesthesia consent Prep: chlorhexidine gluconate Monitoring: blood pressure monitoring, continuous pulse oximetry and heart rate Approach: midline Vertebral Space: lumbar (1-5) Epidural Technique: TALIA saline Needle Type: Tuohy needle Injection Technique: continuous catheter (continuous catheter) Needle gauge: 17 Needle Length (cm): 10 cm Needle Insertion Depth (cm): 6 Catheter Gauge: 19 Catheter Type: multi-orifice Catheter at skin depth (cm): 15 Test Dose Result: negative and lidocaine 1.5% with epinephrine 1 to 200,000
[2023-05-08] MEDS: PHENYLEPHRINE 100 MCG/ML SYRINGE IVP ×5 (02:53→05:06)
[2023-05-08] MEDS: LACTATED RINGERS 1000 ML 1,000 ML 75 ML IV ×2 (03:34→11:00)
--- NOTE | 2023-05-08 05:16 | P.OBPN_ITS ---
Subjective Time Seen by Provider: 05:30 Date Seen: 05/08/23 Narrative: ?Nona is coping well with labor pain/contractions. ?Haritha is with her for support. ?She would like to continue with her epidural for comfort and pain management. RN noted some vaginal bleeding when turning patient, she requested bedside evaluation. Nona feeling contractions as tightening only, denies pelvic pressure. SVE 5/90/0, bloody show present, able to feel slight bulging bag with contraction. Reviewed R/B/A of AROM with Nona and decision made to AROM. Clear fluid noted. Soon after this HR showed variable with contractions. [place] [facility] was adjust and patient turned. Variables with occasional late decels continue at this time. Will decreased IV Pitocin and watch FHR closely. ? Objective Exam: VSS, afebrile General Appearance:? Calm, cooperative. ?No acute distress. ? Psychiatric Exam: Alert and oriented, appropriate affect Abdomen: Gravid Ctx: ?Q 2-3 min apart. ? ? ?Strong FHTs: ?Baseline: 125. ? ? Variability: moderate. ?Accels: . ? ?Decels: ?Variables, occasional lates. SVE: 5/90/0 Membranes: ?AROM clear fluid Vital Signs: Last Vital Signs Temp 98.6 F 05/08/23 05:06 Pulse 66 05/08/23 05:06 Resp 16 05/08/23 05:06 BP 114/60 05/08/23 05:06 Pulse Ox 98 05/08/23 03:28 Plan Plan: Assessment:?? at 40.5wks gestation?? GBS neg Patient is coping well with challenges of labor.?? Labor type: Augmented, Active labor? Category 2 FHR pattern.? complicated by: H/o 2 chemical pregnancies. 09/2021, 02/2022 Measuring small for dates at 40 wks. Growth US 14%. Labor complicated by: Severe Preeclampsia? Plan:?? Titrate Pitocin per protocol and patient response, decrease rate by half now. Magnesium infusing per protocol, BP's stable, monitor per protocol. Continue with routine intrapartum cares as ordered.?? Patient encouraged to move and change positions to promote physiologic labor and .?? Epidural infusing Anticipate progress to NVD. ?
[2023-05-08 05:48] LABS: Hematocrit 34.2 % (33.0-51.0); Hemoglobin* 11.7 gm/dL (12.0-16.0); Mean Corpuscular HGB Conc 34 gm/dL (32-36); Mean Corpuscular Hemoglobin 32 pg (26-34); Mean Corpuscular Volume 94 fL (80-100); Platelet Count* 111 K/uL (140-440); Red Blood Count 3.64 m/uL (4.00-5.20); White Blood Count* 15.78 K/uL (4.50-11.00)
[2023-05-08 05:52] LABS: Slide Review Reflex No
--- NOTE | 2023-05-08 06:44 | PM.OBPNL ---
Subjective Date Seen: 05/08/23 Narrative: Nona was in hands and knees position for approximately 40 minutes, turned to left side now. IV Pitocin was stopped for about 30 minutes, restarted at 0600, current rate is 2mu/hr. She continues to have bright red bloody show and clear fluid. Denies pressure in pelvis, feeling tightening with contractions. BP stable. Recent lab result of Magnesium level was significantly elevated but lab was drawn on arm where IV is infusing. Stat redraw ordered for now. Objective Exam: VSS, afebrile General Appearance:? Calm, cooperative. ?No acute distress. ? Psychiatric Exam: Alert and oriented, appropriate affect Abdomen: Gravid Ctx: ?Q 2-4 min apart. ? ? ?Strong FHTs: ?Baseline: 120. ? ? Variability: minimal. ?Accels: +. ? ?Decels: ?early. SVE: deferred at this time Membranes: ?AROM clear Vital Signs: Last Vital Signs Temp 98.6 F 05/08/23 05:06 Pulse 73 05/08/23 06:39 Resp 16 05/08/23 05:06 BP 123/62 05/08/23 06:39 Pulse Ox 98 05/08/23 06:42 Contractions Pitocin Rate (mU/min): 2 Plan Plan: Plan: Assessment:?? at 40.5wks gestation?? GBS neg Patient is coping well with challenges of labor.?? Labor type: Augmented, Active labor? Category 2 FHR pattern.? complicated by: H/o 2 chemical pregnancies. 09/2021, 02/2022 Measuring small for dates at 40 wks. Growth US 14%. Labor complicated by: Severe Preeclampsia? Plan:?? Titrate Pitocin per protocol and patient response. Magnesium infusing per protocol, BP's stable, monitor per protocol. Magnesium lab repeat now. Continue with routine intrapartum cares as ordered.?? Patient encouraged to move and change positions to promote physiologic labor and .?? Epidural infusing Anticipate progress to NVD.
[2023-05-08 07:18] LABS: Aspartate Amino Transferase* 34 U/L (12-35); Blood Urea Nitrogen* 20 mg/dL (5-24); Creatinine* 0.8 mg/dL (0.5-1.5); Est. Creatinine Clearance* 104.67; Estimated Glomerular Filt Rate 102 ml/min
[2023-05-08 07:19] LABS: Alanine Aminotransferase* 24 U/L (4-35)
--- NOTE | 2023-05-08 07:58 | P.OBPN_ITS ---
Documented by User: Bonnie Dsouza 05/08/23 08:38 Subjective Time Seen by Provider: 07:58 Date Seen: 05/08/23 Narrative: Assumed care after report from previous CNM. At pt bedside for interval rounding and assessment. Nona was lying in bed. She's reporting intermittent rectal pressure with contractions and FHT- variable decelerations with contractions. Variable decelerations improved with position change. She is agreeable to cervical check. Objective Exam: Objective: Constitutional: Alert and oriented x3, no distress, coping well Vital signs stable, see nurse documentation Abdomen: gravid, contractions palpate moderate/strong with contractions and soft between Cervix: 8cm/90%/0 station: Vertex NST: 115 bpm/ moderate variability/accelerations/variable decelerations/2-4 co ntractions. Vital Signs: Last Vital Signs Temp 97.8 F 05/08/23 07:47 Pulse 74 05/08/23 07:51 Resp 16 05/08/23 05:06 BP 114/64 05/08/23 07:51 Pulse Ox 95 05/08/23 07:57 Pelvic Exam Dilation (cm): 8 Effacement (%): 90 Station: 0 Contractions Monitor mode: External Contraction Frequency: 2-4 Contraction pattern: Irregular Contraction intensity: Moderate Pitocin Rate (mU/min): 2 Assessment Assessment: active labor Station: 0 Amniotic Membrane Status: AROM Status: Category ll Heart Rate Baseline: 115 Custodial Variability: Moderate (6-25) Monitor Accelerations: Present Monitor Decelerations: Variable Labor Progress: Active labor SROM: Clear fluid FHT: Category 2, variable decelerations Plan Plan: PLAN Titrate Pitocin per protocol and patient response. Magnesium infusing per protocol, BP's stable, monitor per protocol. Magnesium lab repeat now. Continue with routine intrapartum cares as ordered.?? Change positions to promote physiologic labor and .?? Epidural infusing Assess in 2 hours, sooner if needed Anticipate progress to normal vaginal brith Documented by User: Jeana Bhat CNM 05/08/23 18:47 Plan Plan: Assessment: Active labor SROM: Clear fluid FHT: Category 2, variable decelerations PLAN: Titrate Pitocin per protocol and patient response. Magnesium infusing per protocol, BP's stable, monitor per protocol. Magnesium lab repeat now. Continue with routine intrapartum cares as ordered.?? Change positions to promote physiologic labor and .?? Epidural infusing Assess in 2 hours, sooner if needed Anticipate progress to normal vaginal I,?Jeana Bhat APRN, JAKE, was present for visit and have reviewed and agree with documentation by the Certified Nurse Midwifery Student.
--- NOTE | 2023-05-08 10:33 | PM.OBPNL ---
Documented by User: Lavernshun Dsouza 05/08/23 13:11 Subjective Time Seen by Provider: 10:34 Date Seen: 05/08/23 Narrative: At bedside for interval assessment. Pt on her side reporting mild left upper abdomen with contractions. Epidural infusing. Assisted to reposition. She is unchanged. FHT- Category II(intermittent variables and with late decelerations) Moderate variability. Overall reassuring. Objective Vital Signs: Last Vital Signs Temp 97.8 F 05/08/23 07:47 Pulse 65 05/08/23 10:21 Resp 16 05/08/23 05:06 BP 134/79 05/08/23 10:21 Pulse Ox 97 05/08/23 10:32 Pelvic Exam Dilation (cm): 8 Effacement (%): 90 Station: 0 Contractions Monitor mode: External Contraction pattern: Irregular Contraction intensity: Moderate Pitocin Rate (mU/min): 3 Assessment Assessment: active labor Station: 0 Amniotic Membrane Status: AROM Status: Category ll Heart Rate Baseline: 115 Group Home Variability: Moderate (6-25) Monitor Accelerations: Present Monitor Decelerations: Variable Labor Progress: Objective: Constitutional: Alert and oriented x3, no distress Vital signs stable, see nurse documentation Abdomen: gravid, contractions palpate moderate and soft between Cervix: 8cm/90%/0 station/vertex, unchanged NST: 110 bpm/ moderate variability/ accelerations/ variable and late decelerations/ 2-4contractions Maternal Status: Coping with labor. Plan Plan: Reviewed plan of care with pt and partner Reassess in 2 hours Continue with current management plan Anticipate SVB Documented by User: Jeana Bhat CNM 05/08/23 18:53 Plan Plan: Reviewed plan of care with pt and partner Reassess in 2 hours Continue with current management plan Anticipate SVB I,?Jeana Bhat APRN, CNM, was present for visit and have reviewed and agree with documentation by the Certified Nurse Midwifery Student.
[2023-05-08 10:55] LABS: Hematocrit 37.8 % (33.0-51.0); Hemoglobin* 13.1 gm/dL (12.0-16.0); Mean Corpuscular HGB Conc 35 gm/dL (32-36); Mean Corpuscular Hemoglobin 32 pg (26-34); Mean Corpuscular Volume 92 fL (80-100); Platelet Count* 153 K/uL (140-440); Red Blood Count 4.12 m/uL (4.00-5.20); White Blood Count* 18.04 K/uL (4.50-11.00)
[2023-05-08 11:04] LABS: Slide Review Reflex No
[2023-05-08 11:28] LABS: Alanine Aminotransferase* 24 U/L (4-35); Aspartate Amino Transferase* 32 U/L (12-35); Blood Urea Nitrogen* 19 mg/dL (5-24); Creatinine* 0.9 mg/dL (0.5-1.5); Est. Creatinine Clearance* 93.04; Estimated Glomerular Filt Rate 89 ml/min
[2023-05-08 11:31] LABS: Magnesium* 7.9 mg/dL (1.5-2.6)
--- NOTE | 2023-05-08 11:47 | PM.OBPNL ---
Documented by User: Bonnie Brooksdiana 05/08/23 12:45 Subjective Time Seen by Provider: 11:47 Date Seen: 05/08/23 Narrative: Pt resting in bed and appear comfortable. Assisted with side-lying release. Partner at bedside and support. 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 No Cervix felt with contractions Plan Plan: Reassess in and 1 -2hr Documented by User: Jeana Bhat CNM 05/08/23 18:52 Plan Plan: ASSESSMENT:? 28 at 40 5/7 weeks gestation? Active Labor? Category 2 FHR pattern.?? Labor complicated by: Pre-eclampsia with severe features? GBS negative? ? PLAN:? 1. Routine intrapartum cares as ordered. Continue with pitocin titration? 2. Monitoring per policy, continuous? 3. Patient encouraged to reposition to promote physiologic labor and .? 4. Reassess in and 1 -2hr 5. Anticipate ? I,?Jeana Bhat APRN, CNM, was present for visit and have reviewed and agree with documentation by the Certified Nurse Midwifery Student.
--- NOTE | 2023-05-08 13:11 | PM.OBPNL ---
Documented by User: Bonnie Dsouza 05/08/23 13:14 Subjective Time Seen by Provider: 13:11 Date Seen: 05/08/23 Narrative: Pt reports intermittent rectal pressure. Small anterior cervix felt. Reducible with contraction. Objective Vital Signs: Last Vital Signs Temp 98 F 05/08/23 11:02 Pulse 75 05/08/23 13:05 Resp 16 05/08/23 05:06 BP 130/72 05/08/23 13:05 Pulse Ox 98 05/08/23 13:07 Pelvic Exam Dilation (cm): 9.5 Effacement (%): 90 Station: 0 Contractions Monitor mode: External Contraction pattern: Irregular Contraction intensity: Moderate Pitocin Rate (mU/min): 3 Assessment Station: 0 Amniotic Membrane Status: AROM Status: Category ll Heart Rate Baseline: 115 Monitor Accelerations: Present Monitor Decelerations: Late Plan Plan: Begin 2nd stage Documented by User: Jeana Bhat CNM 05/08/23 18:50 Plan Plan: Begin 2nd stage Continuous monitoring at bedside. I,?Jeana Bhat APRN, CNM, was present for visit and have reviewed and agree with documentation by the Certified Nurse Midwifery Student.
[2023-05-08] MEDS: MAGNESIUM Infusion 40 GM/1,000 ML IV.SOLN IVPB (13:30)
[2023-05-08] MEDS: TRANEXAMIC ACID 100 MG/ML INJ 1000 MG IV (16:25)
[2023-05-08] MEDS: LIDOCAINE 1 % PF 30 ML INJECTION (16:39)
--- NOTE | 2023-05-08 17:28 | P.OBCN_ITS ---
OB - CN: HPI Date of Consult Time Seen by Provider: 11:00 Date Seen: 05/08/23 Patient: [facility] Patient Consult date: 05/08/23 Requesting Physician: Ta Younger CNM Primary Care Provider: Maya Keating MD Consult Narrative Narrative: The patient is a 28 year old G 3 P 0020 at 40.4 weeks gestation that was admitted to the Center on 05/07/23 for contractions and severe ranging BP. On admission to triage she had severe range BP's. Started on IV Magnesium and given Labetalol IV 20mg and 40 mg. Last BP's were below severe range but elevated. She has had an uncomplicated otherwise. MD OB team is consulted for medical management of preeclampsia with severe features. However, midwifery team will be performing the delivery per patient request. Pre E labs are currently being drawn Q6H. Currently notable for thrombocytopenia and 111K/uL. Magnesium level within therapeutic range. She is tolerating the magnesium well. The patient has preeclampsia with severe features of severe range of blood pressures. We discussed complications to the mother from the disease including risk of stroke, seizure, worsening hypertension, and abruption. We also addressed risks to the fetus including the risk of FGR, delivery, oligohydramnios, and abruption.? We explained to the patient that although immediate delivery will cure the disease of preeclampsia, it will impose the risks of prematurity on the . As gestational age progresses, the risks to the will decrease.? The goal of management will be to properly identify the time when the risks to the mother of staying are outweighed by the risks of prematurity. Given that she is past her due date, it is appropriate to induce labor. Labor is progressing appropriately. She will be on magnesium for 24 hours . Discussed with patient that she might need oral antihypertensive medication depending on what her blood pressures are . Patient and her spouse has no further questions. History History 3 Elective abortions Para 0 Spontaneous abortions 2 Hx # Term Pregnancies Ectopic pregnancies Hx # Pregnancies Multiple births Number of Living Children 0 Past Pregnancies Del. Date GA/Weeks Outcome Route wt Inf Gender Labor Lgth Anesthesia Location Provider Compli 10/19/21 6 spontaneous 02/24/22 6 spontaneous Delivery Date: 10/19/21 Last Updated by: Maria Del Rosario Novoa ~ LEAD BUSINESS SYSTEMS ANALYST, LEAD BUSINESS SYSTEMS ANALYST passed on her own Delivery Date: 02/24/22 Last Updated by: Maria Del Rosario Novoa ~ LEAD BUSINESS SYSTEMS ANALYST, LEAD BUSINESS SYSTEMS ANALYST passes on her own Labs GBS status: negative OB Labs: Lab Assessment Start: 05/08/23 02:28 Freq: ONCE Status: Complete Protocol: PC.OBGBS Activity Type Activity Date Activity User E-sign Co-sign Detail Recorded Client Recorded Date Recorded By Document 05/08/23 02:33 FRANCES [id number] 05/08/23 02:34 FRANCES 05/08/23 02:33 Lab Assessment GBS Status negative GBS Additional Criteria None No Treatment Needed OK Are Labs Available Yes Maternal Blood Type A Maternal RH Factor Positive Evaluate Maternal Rubella Immune Status Immune Hepatitis B Surface Antigen Negative Maternal HIV Status Negative Maternal Syphillis (RPR) Status Negative PFSH PFSH Medical History (Updated 05/07/23 @ 18:00 by Ta Younger CNM) 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 Marital status: . Partner: Haritha: Horizontal Resaw Operator. Lives with: in [place]. Pets: None. Quaker/cultural needs: No. Chemical or radiation exposure: No. Pre- tobacco use: No. Pre- alcohol use: No. Current tobacco use: No. Current alcohol use: No. Recreational drug use: No. Dietary restrictions: Avoids dairy. Blood transfusion acceptable in an emergency: Yes. Planning to breastfeed: Yes. PSYCHOSOCIAL HISTORY: History of depression or currently depressed: No. Current physical, emotional, or sexual mistreatment: No. Problems that will make it hard to make it to appointments: No. What is your current living situation?: I presently have a place to live Problems where you live: no known problems In the past 12 months, utilities in danger of being shut off: no In past 12 months, lack of transportation kept you from medical appts, meetings, work, or getting things needed for daily living: no In the past 12 mos, have been you worried that your food would run out before you had money to buy more?: never true In the past 12 mos, the food you bought just didn't last and you didn't have money to buy more?: never true Smoking Status: Never smoker How often do you have a drink containing alcohol: never AUDIT-C Alcohol total score: 0 Non-prescribed substance use: denies use How often does anyone, including family, friends and others, physically hurt you : never How often does anyone, including family, friends and others, insult or talk down to you: never How often does anyone, including family, friends and others, threaten you with harm: never How often does anyone, including family, friends and others, scream or curse at you: never Little interest or pleasure in doing things: not at all Feeling down, depressed, or hopeless: not at all Meds Home Medications and Allergies Home Medications Medication Instructions Recorded Confirmed Type clindamycin 1 %-benzoyl peroxide 5 1 applic topical PRN PRN 10/18/21 05/07/23 History % topical gel prenat.vits,celsa,rjh-bifx-mnlpv 1 tab PO QDAY 10/18/21 05/07/23 History calcium carb and lactate 200 1 tab PO DAILY 04/12/23 05/07/23 History mg-vitamin D3 6.25 mcg (250 unit) tablet Allergies Allergy/AdvReac Type Severity Reaction Status Date / Time No Known Drug Allergies Allergy Verified 05/07/23 16:09 OB - H&P: Exam Physical Exam: Vital signs: Temp Pulse Resp BP Pulse Ox 98 F 71 16 145/96 H 98 05/08/23 11:02 05/08/23 17:20 05/08/23 05:06 05/08/23 17:20 05/08/23 13:12 Narrative: Physical exam: General: No acute distress. Comfortable with epidural Psych: Alert and oriented x4, full affect HEENT: Normocephalic, atraumatic Lungs: Unlabored breathing in between contractions. Abdomen: Gravid. soft, no tenderness, rebound, or guarding. Skin: No lesions or rashes Breasts: no nodules or masses, no nipple discharge, no axillary adenopathy Lower extremities: 1+ bilateral lower extremity edema Pelvic exam: /0 per CNM check OB - Results Labs Labs: Short CBC 05/07/23 05/08/23 05/08/23 Range/Units 23:35 05:35 10:46 WBC 16.04 H 15.78 H 18.04 H (4.50-11.00) K/uL Hgb 12.8 11.7 L 13.1 (12.0-16.0) gm/dL Hct 36.6 34.2 37.8 (33.0-51.0) % Plt Count 154 111 L 153 (140-440) K/uL BMP 05/07/23 05/08/23 05/08/23 23:35 05:35 10:46 BUN 21 20 19 Creatinine 0.8 0.8 0.9 Liver Function 05/07/23 05/08/23 05/08/23 Range/Units 23:35 05:35 10:46 AST 36 H 34 32 (12-35) U/L ALT 25 24 24 (4-35) U/L OB - CN: A/P Assessment and Plan (1) Severe pre-eclampsia: Status: Acute (2) Pain during labor: Status: Acute
--- NOTE | 2023-05-08 18:13 | W.PM.VAGDE_ITS ---
Documented by User: Bonnie Dsouza 05/08/23 19:26 OB Procedure Vag Delivery Mother Details Mother Details: The patient is a 28 year-old, 3, Para 0, admitted on 05/07/23 at 40.4 wk gestation with painful contractions and Severe range blood pressures. : 3 Para: 1 Weeks Gestation: 40.5 Admission Date: 05/07/23 Additional Details Amniotic Membrane Status: AROM Amniotic Membrane Rupture Date: 05/08/23 Amniotic Membrane Rupture Time: 05:00 Amniotic Membrane Fluid Description: Clear Analgesia/Anesthesia Type: Epidural Waterbirth: No Pitcoin: Yes (and TXA ) Intrapartal Events: Labor Augmentation and Prolonged 2nd Stage >2.5 Hrs Delivery augmentation: pitocin Labor Onset: 01:46 Complete: 12:54 Pushin:18 Heart: heart tones during second stage were Category II Delivery Details Delivery Date: 05/08/23 Route of delivery: Infant Gender: Male Infant Viability: Alive; Heart Rate Present Position at Delivery: OA Delivery Details: -S-o-l-i-e-n-t- -w-a-s- -f-x-h-i-t-munira for painful contractions and severe range blood pressures during admission requiring Labetalol IVP x2. She met criteria for Pre- E with Severe features and Magnesium Sulfate was started for Neuro protection. She progressed with Pitocin augmentation at 0101 and AROM clear fluid at 0500. Patient was complete at 1254 and started pushing at 1318. of a viable male at 1620 in semi - lambert position in bed. Head delivered in Vertex, OA, restituted to ARI. Loosed nuchal cord noted, [facility]. No shoulder dystocia was noted. Body delivered easily and without incident. passed to mother briefly before cord was clamped for further assessment by credit union examiner due to maternal Magnesium sulfate treatment and Category II tracing in 2nd stage. No delay cord clamping. APGARS were 7 at one minute and 9 at five minutes respectively. Intact placenta with a 3 vessel cord delivered spontaneously at 1625. Fundus firm. Complex 2nd degree vaginal laceration, Bilateral sulcus and right labia tears were identified and repaired in typical fashion using existing epidural and lidocaine injection. QBL 400 cc. Mother and baby stable; mother plans to breastfeed. weight [id number] 1 Minute Interval Total Score: 7 5 Minute Interval Total Score: 9 Additional Details Shoulder Dystocia: No Placenta Delivery Time: 16:25 Delivery repair: Vicryl Procedure Done: Global Blood Loss: 400 Laceration: Vaginal - 2nd Degree (Complex vaginal 2nd degree laceration. Extended deep posterior creating a vaginal pocket. Dr Duff assessed and confirmed 2nd degree vaginal laceration with vaginal pocket. Right labia and bilateral sulcus tear ) Blood Loss Measurement Type: QBL (400) Sponge/Need Count Correct: Yes Cord Vessel Description: 3 Vessels, Loose and Delivered through Event Summary Status: Maternal pre- E labs and post delivery Magnesium sulfate is been managed by Mother and were stable after delivery. Disposition: floor Documented by User: Jeana Bhat CNM 05/08/23 21:20 OB Procedure Vag Delivery Mother Details Mother Details: The patient is a 28 year-old, 3, now Para 1, admitted on 05/07/23 at 40.4 wk gestation with painful contractions and severe range blood pressures. Additional Details Pitcoin: Yes (and TXA for AMTSL; Pitocin for labor augmentation) Heart: heart tones during second stage were Category II with intermittent late and variables. Dr. Duff was consulted for tracing at about 1 hour into the second stage and was aware of patient progress. She pushed well and fetus recovered well with position changes. Delivery Details Delivery Time: 16:20 Delivery Details: Patient was admitted for painful contractions and severe range blood pressures during admission requiring Labetalol IV x2. She met criteria for Pre- E with Severe features and Magnesium Sulfate was started for seizure prophylaxis. She progressed with Pitocin augmentation at 0101 and AROM clear fluid at 0500. Patient was complete at 1254 and started pushing at 1318. of a viable male at 1620 in semi - lambert position in bed. Head delivered in Vertex, OA, restituted to ARI. Loosed nuchal cord noted, delivered through and released by [facility]. No shoulder dystocia was noted. Body delivered easily and without incident. Infant passed to mother briefly before cord was clamped for further assessment by credit union examiner due to maternal Magnesium sulfate treatment and Category II tracing in 2nd stage. Approximately 30 seconds of delayed cord clamping. APGARS were 7 at one minute and 9 at five minutes respectively. Intact placenta with a 3 vessel cord delivered spontaneously at 1625. Fundus firm. Complex 2nd degree vaginal laceration, Bilateral sulcus and right labia tears were identified and repaired in typical fashion using existing epidural and lidocaine injection. Dr. Duff was consulted during labor for heart rate tracing and after delivery to rule out significant laceration but she agreed with complex second degree. This was repaired by CNBakari. QBL 400 cc. Mother and baby stable; mother plans to breastfeed. weight [id number] Event Summary Status: Maternal pre- E labs and post delivery Magnesium sulfate is been managed by . Care assumed by Dr. Duff and will be followed until discharge for pre- eclampsia with severe features. Mother and infant were stable after delivery. I,?Jeana Bhat APRN, JAKE, was present for visit and have reviewed and agree with documentation by the Certified Nurse Midwifery Student.
[2023-05-08 18:19] LABS: Hematocrit 34.2 % (33.0-51.0); Hemoglobin* 11.9 gm/dL (12.0-16.0); Mean Corpuscular HGB Conc 35 gm/dL (32-36); Mean Corpuscular Hemoglobin 32 pg (26-34); Mean Corpuscular Volume 92 fL (80-100); Platelet Count* 147 K/uL (140-440); Red Blood Count 3.72 m/uL (4.00-5.20)
[2023-05-08 18:28] LABS: Slide Review Reflex No; White Blood Count* 25.06 K/uL (4.50-11.00)
[2023-05-08 18:34] LABS: Est. Creatinine Clearance* 83.74; Estimated Glomerular Filt Rate 78 ml/min
[2023-05-08 18:35] LABS: Alanine Aminotransferase* 22 U/L (4-35); Aspartate Amino Transferase* 38 U/L (12-35); Blood Urea Nitrogen* 20 mg/dL (5-24)
[2023-05-08 18:39] LABS: Magnesium* 7.9 mg/dL (1.5-2.6)
[2023-05-09] VITALS (11 sets, daily range): BP systolic 129–149; BP diastolic 75–84; PULSE 62–83; RESP 14–16; TEMP 36.4–37.1; O2SAT 97–98
[2023-05-09] MEDS: ACETAMINOPHEN 500 MG TABLET 1000 MG PO (02:44)
[2023-05-09 03:43] LABS: Hematocrit 30.4 % (33.0-51.0); Hemoglobin* 10.3 gm/dL (12.0-16.0); Mean Corpuscular HGB Conc 34 gm/dL (32-36); Mean Corpuscular Hemoglobin 32 pg (26-34); Mean Corpuscular Volume 94 fL (80-100); Platelet Count* 129 K/uL (140-440); Red Blood Count 3.24 m/uL (4.00-5.20); White Blood Count* 20.92 K/uL (4.50-11.00)
[2023-05-09 03:46] LABS: Slide Review Reflex No
[2023-05-09 03:58] LABS: Alanine Aminotransferase* 23 U/L (4-35); Aspartate Amino Transferase* 49 U/L (12-35); Blood Urea Nitrogen* 19 mg/dL (5-24); Est. Creatinine Clearance* 83.74; Estimated Glomerular Filt Rate 78 ml/min
[2023-05-09 04:08] LABS: Magnesium* 8.1 mg/dL (1.5-2.6)
[2023-05-09] MEDS: MAGNESIUM Infusion 40 GM/1,000 ML IV.SOLN IVPB (08:02)
[2023-05-09] MEDS: DOCUSATE SODIUM 100 MG CAPSULE PO (08:03)
--- NOTE | 2023-05-09 08:40 | PM.OBPNVD1 ---
OB - PN:Subj Subjective Date Seen: 05/09/23 Interval history: Nona is a 28-year-old G3 now P1 woman who is status post normal spontaneous vaginal delivery on 05/08/2023 at 40 weeks, 5 days gestation. She was diagnosed with preeclampsia with severe features at time of admission. She gave at 4:20 p.m. on 05/08/2023. OB - PN: Obj Exam Physical Exam: Vital signs: Temp Pulse Resp BP Pulse Ox O2 Del Method 98.6 F 62 15 149/84 H 97 Room Air 05/09/23 08:17 05/09/23 08:17 05/09/23 08:17 05/09/23 08:17 05/09/23 08:17 05/09/23 08:17 Many BPs elevated in mild range during course. OB - PN: Obj Data Labs Labs: Laboratory Results - last 24 hr 05/08/23 05/08/23 05/09/23 10:46 18:14 03:35 WBC 18.04 H 25.06 H* 20.92 H RBC 4.12 3.72 L 3.24 L Hgb 13.1 11.9 L 10.3 L Hct 37.8 34.2 30.4 L MCV 92 92 94 MCH 32 32 32 MCHC 35 35 34 Plt Count 153 147 129 L BUN 19 20 19 Creatinine 0.9 1.0 1.0 Estimated Creat Clear 93.04 83.74 83.74 Estimated GFR 89 78 78 Magnesium 7.9 H* 7.9 H* 8.1 H* AST 32 38 H 49 H ALT 24 22 23 Urine output has been 3200 mL since midnight Platelets were at their lowest at 111 yesterday morning. Creatinine is slightly elevated at 1.0 AST was elevated at last check at 49 OB - PN: A/P Delivery Assessment and Plan (1) Severe pre-eclampsia: Status: Acute
[2023-05-09] MEDS: OXYMETAZOLINE 0.05% NASAL SPRAY 1 SPRAY NOSTRIL-B ×2 (09:36→21:30)
[2023-05-09 09:39] LABS: Hematocrit 30.5 % (33.0-51.0); Hemoglobin* 10.4 gm/dL (12.0-16.0); Mean Corpuscular HGB Conc 34 gm/dL (32-36); Mean Corpuscular Hemoglobin 32 pg (26-34); Mean Corpuscular Volume 94 fL (80-100); Platelet Count* 125 K/uL (140-440); Red Blood Count 3.25 m/uL (4.00-5.20); White Blood Count* 19.78 K/uL (4.50-11.00)
[2023-05-09 09:58] LABS: Alanine Aminotransferase* 24 U/L (4-35); Aspartate Amino Transferase* 52 U/L (12-35); Blood Urea Nitrogen* 18 mg/dL (5-24); Est. Creatinine Clearance* 83.74; Estimated Glomerular Filt Rate 78 ml/min
[2023-05-09 10:00] LABS: Magnesium* 8.2 mg/dL (1.5-2.6)
[2023-05-09] MEDS: LACTATED RINGERS 1000 ML 1,000 ML 75 ML IV (11:51)
--- NOTE | 2023-05-09 12:56 | PM.ANPOST ---
Post Anesthesia Note Post Anesthesia Note Patient seen: Inpatient Respiratory Status: adequate Cardiovascular Status: adequate Mental Status: baseline Pain: adequate Temp: baseline Anesthetic awareness: no Complications: none Follow care: none
[2023-05-09 15:40] LABS: Alanine Aminotransferase* 26 U/L (4-35); Aspartate Amino Transferase* 52 U/L (12-35); Blood Urea Nitrogen* 18 mg/dL (5-24); Creatinine* 0.9 mg/dL (0.5-1.5); Est. Creatinine Clearance* 93.04; Estimated Glomerular Filt Rate 89 ml/min
[2023-05-09 15:42] LABS: Hematocrit 30.3 % (33.0-51.0); Hemoglobin* 10.3 gm/dL (12.0-16.0); Mean Corpuscular HGB Conc 34 gm/dL (32-36); Mean Corpuscular Hemoglobin 32 pg (26-34); Mean Corpuscular Volume 95 fL (80-100); Platelet Count* 140 K/uL (140-440); Red Blood Count 3.19 m/uL (4.00-5.20); White Blood Count* 19.07 K/uL (4.50-11.00)
[2023-05-09 15:45] LABS: Slide Review Reflex No
--- NOTE | 2023-05-09 17:53 | PM.OBPNVD1 ---
OB - PN:Subj Subjective Date Seen: 05/09/23 Interval history: Nona is a 28-year-old G3 now P1 woman who is status post normal spontaneous vaginal delivery on 05/08/2023 at 40 weeks, 5 days gestation. She was diagnosed with preeclampsia with severe features at time of admission. She gave at 4:20 p.m. on 05/08/2023. She was maintained on magnesium sulfate for seizure prophylaxis until 4:20 p.m. on 05/09/2023. Narrative: During the time that she was on magnesium, she noted some blurry vision. She thinks this is improving, though it is still present, and helped by closing her left eye. She has been able to breastfeed and is using a nipple shield to help with latch. She denies any heavy bleeding. She has ambulated a little bit. She denies any urinary difficulties. OB - PN: Obj Exam Physical Exam: Vital signs: Temp Pulse Resp BP Pulse Ox O2 Del Method 97.9 F 76 16 137/84 98 Room Air 05/09/23 16:26 05/09/23 16:26 05/09/23 16:26 05/09/23 16:26 05/09/23 16:26 05/09/23 16:26 Blood pressures have been primarily mildly elevated since delivery, with some normal range blood pressures. No severe range blood pressures during her course. Diuresis of 6400 mL of urine in the last 24 hours. Narrative: General: Pleasant, no acute distress Heart: Regular rate and rhythm, no murmur or gallop Lungs: Clear to auscultation bilaterally Abdomen: Soft, nontender, fundus well below umbilicus, no right upper quadrant pain Lower extremities: Slight edema of bilateral feet, No edema or erythema of legs OB - PN: Obj Data Labs Labs: Laboratory Results - last 24 hr 05/08/23 05/09/23 05/09/23 18:14 03:35 09:30 WBC 25.06 H* 20.92 H 19.78 H RBC 3.72 L 3.24 L 3.25 L Hgb 11.9 L 10.3 L 10.4 L Hct 34.2 30.4 L 30.5 L MCV 92 94 94 MCH 32 32 32 MCHC 35 34 34 Plt Count 147 129 L 125 L BUN 20 19 18 Creatinine 1.0 1.0 1.0 Estimated Creat Clear 83.74 83.74 83.74 Estimated GFR 78 78 78 Magnesium 7.9 H* 8.1 H* 8.2 H* AST 38 H 49 H 52 H ALT 22 23 24 05/09/23 15:15 WBC 19.07 H RBC 3.19 L Hgb 10.3 L Hct 30.3 L MCV 95 MCH 32 MCHC 34 Plt Count 140 BUN 18 Creatinine 0.9 Estimated Creat Clear 93.04 Estimated GFR 89 Magnesium 8.0 H* AST 52 H ALT 26 OB - PN: A/P Delivery Assessment and Plan (1) Severe pre-eclampsia: Status: Acute Assessment and Plan: Now is as of resume sulfate for seizure prophylaxis. She has had massive diuresis. Blood pressures have been mildly elevated for most of her course. Begin nifedipine ER 30 mg q.h.s.. We will continue blood pressure measurement every 4 hours overnight. I favor repeat preeclampsia labs in the morning. She will be a candidate for discharge once we can assure that her blood pressures are stable on antihypertensives; this could be tomorrow or day 3. Plan day: 1
[2023-05-09] MEDS: NIFEdipine 30 MG TAB.ER.24 PO (21:11)
[2023-05-09 21:16] LABS: Hemoglobin* 9.8 gm/dL (12.0-16.0); Mean Corpuscular HGB Conc 34 gm/dL (32-36); Mean Corpuscular Hemoglobin 32 pg (26-34); Mean Corpuscular Volume 95 fL (80-100); Platelet Count* 135 K/uL (140-440); Red Blood Count 3.04 m/uL (4.00-5.20); White Blood Count* 19.08 K/uL (4.50-11.00)
[2023-05-09 21:36] LABS: Alanine Aminotransferase* 25 U/L (4-35); Aspartate Amino Transferase* 49 U/L (12-35); Blood Urea Nitrogen* 21 mg/dL (5-24); Creatinine* 0.9 mg/dL (0.5-1.5); Est. Creatinine Clearance* 93.04; Estimated Glomerular Filt Rate 89 ml/min; Slide Review Reflex No
[2023-05-09 22:03] LABS: Magnesium* 4.6 mg/dL (1.5-2.6)
[2023-05-10] VITALS (7 sets, daily range): BP systolic 120–151; BP diastolic 71–89; PULSE 68–83; RESP 16–18; TEMP 2.5–37.2; O2SAT 96–98
[2023-05-10] MEDS: ACETAMINOPHEN 500 MG TABLET 1000 MG PO ×2 (00:30→15:44)
[2023-05-10 00:50] LABS: Slide Review Reflex No
[2023-05-10 02:27] LABS: Rapid Plasma Reagin (RPR) Non Reactive (Non Reactive)
[2023-05-10 03:25] LABS: Hematocrit 28.9 % (33.0-51.0); Hemoglobin* 9.8 gm/dL (12.0-16.0); Mean Corpuscular HGB Conc 34 gm/dL (32-36); Mean Corpuscular Hemoglobin 33 pg (26-34); Mean Corpuscular Volume 96 fL (80-100); Platelet Count* 128 K/uL (140-440); Red Blood Count 3.02 m/uL (4.00-5.20); White Blood Count* 19.63 K/uL (4.50-11.00)
[2023-05-10 03:26] LABS: Slide Review Reflex No
[2023-05-10 03:39] LABS: Aspartate Amino Transferase* 52 U/L (12-35); Creatinine* 0.8 mg/dL (0.5-1.5); Est. Creatinine Clearance* 104.67; Estimated Glomerular Filt Rate 102 ml/min
[2023-05-10 03:40] LABS: Alanine Aminotransferase* 25 U/L (4-35); Blood Urea Nitrogen* 22 mg/dL (5-24); Magnesium* 3.7 mg/dL (1.5-2.6)
--- NOTE | 2023-05-10 08:51 | P.OBPN_ITS ---
OB - PN:Subj Subjective Time Seen by Provider: 07:15 Date Seen: 05/10/23 Interval history: Nona is a 28-year-old G3 now P1 woman who is status post normal spontaneous vaginal delivery on 05/08/2023 at 40 weeks, 5 days gestation. She was diagnosed with preeclampsia with severe features at time of admission. She gave at 4:20 p.m. on 05/08/2023. She was maintained on magnesium sulfate for seizure prophylaxis until 4:20 p.m. on 05/09/2023. Nona notes she is feeling much better since discontinuation of magnesium. She was started on nifedipine for blood pressure management yesterday, where she has been subsequently normotensive. She denies headache, vision changes or right upper quadrant pain. She notes perineal discomfort, tolerable improving with time. Lochia is moderate, no heavy bleeding or passage of large clots. Tolerating p.o. without nausea/vomiting. No bowel or bladder concerns. Ambulates without difficulty. Nona is , where she started with pumping and bottle feeding but is working on direct . OB - PN: Obj Exam Physical Exam: Vital signs: Temp Pulse Resp BP Pulse Ox O2 Del Method 98.9 F 68 18 131/78 97 Room Air 05/10/23 03:20 05/10/23 03:20 05/10/23 03:20 05/10/23 03:20 05/10/23 03:20 05/10/23 03:20 Narrative: Constitutional: Comments: General: Alert and oriented, in no acute distress Psych: Appropriate mood and affect Heart: Regular rate and rhythms, no rubs murmurs or gallops Lungs: Clear to posterior auscultation throughout, no wheezes rales or crackles Abdomen: Soft, nondistended and nontender. Fundus at 1 below U. Extremities: Trace bilateral edema. Patellar reflexes 3+ bilaterally. OB - PN: Obj Data Labs Labs: Laboratory Results - last 24 hr 05/08/23 05/09/23 05/09/23 00:00 09:30 15:15 WBC 19.78 H 19.07 H RBC 3.25 L 3.19 L Hgb 10.4 L 10.3 L Hct 30.5 L 30.3 L MCV 94 95 MCH 32 32 MCHC 34 34 Plt Count 125 L 140 BUN 18 18 Creatinine 1.0 0.9 Estimated Creat Clear 83.74 93.04 Estimated GFR 78 89 Magnesium 8.2 H* 8.0 H* AST 52 H 52 H ALT 24 26 RPR Screen Non Reactive 05/09/23 05/10/23 21:12 03:20 WBC 19.08 H 19.63 H RBC 3.04 L 3.02 L Hgb 9.8 L 9.8 L Hct 29.0 L 28.9 L MCV 95 96 MCH 32 33 MCHC 34 34 Plt Count 135 L 128 L BUN 21 22 Creatinine 0.9 0.8 Estimated Creat Clear 93.04 104.67 Estimated GFR 89 102 Magnesium 4.6 H* 3.7 H AST 49 H 52 H ALT 25 25 RPR Screen OB - PN: A/P Delivery Assessment and Plan (1) Severe pre-eclampsia: Status: Acute Plan Ms. Mejia is a 28yo seen on PPD2 from [facility] following IOL for preeclampsia with severe features. She is s/p 24 hour Mag course. Last HELLP labs this morning show persistent mild thrombocytopenia and transaminitis. Her platelets were very mildly downtrending (128 from 135) but these in general are improved from her kristin of 111. She was started on nifedipine 30 mg XL daily yesterday morning, has been normotensive on this thus far. Patient is asymptomatic - no headache, vision changes or right upper quadrant pain. Physical exam is unremarkable. We discussed at minimum, I would strongly advise she stay through the afternoon for further blood pressure monitoring. Medically, my preference would be to observe her overnight given the risk of increasing blood pressures that could necessitate antihypertensive regimen titration. I am concerned she would be at high risk for readmission with premature dismissal, where ACOG recommends 72 hours of BP monitoring following delivery for preE with SF. Patient expressed understanding, though her preference is to dismiss today. We will reassess her BP management this evening for dismissal planning, likely tomorrow. Recommend routine cares and support.
[2023-05-10] MEDS: DOCUSATE SODIUM 100 MG CAPSULE PO (09:36)
[2023-05-10] MEDS: IBUPROFEN 600 MG TABLET PO (12:21)
[2023-05-10] MEDS: BENZOCAINE/MENTHOL SPRAY 85 GM AEROSOL 1 APPLIC TOPICAL (14:28)
[2023-05-10] MEDS: NIFEdipine 30 MG TAB.ER.24 PO (21:26)
[2023-05-11 05:44] VITALS: BP 131/90; PULSE 77; RESP 18; TEMP 36.9; O2SAT 97
--- NOTE | 2023-05-11 07:25 | PM.OBDSVD1 ---
DS: Providers Provider Time Seen by Provider: 07:25 Date Seen: 05/11/23 Date of admission: 05/07/23 16:42 Primary care physician: Maya Keating MD Admitting Clinician: Ta Younger CNM Consults: 05/08/23 07:03 Consult to Physician [CONS] Routine Comment: Consulting Provider: Jael Edmondson Has provider been notified: Yes Attending Physician on discharge: Jael Edmondson MD Exam Const: Vital Signs, click to edit/add: Vital Signs - 24 hr 05/10/23 08:35 05/10/23 11:55 05/10/23 12:03 Temperature 98.1 F 97.8 F Pulse Rate [Pulse Oximeter] 76 83 Respiratory Rate 18 16 Blood Pressure [Ri ght Arm] 120/72 151/89 H 139/88 Pulse Oximetry 98 98 Oxygen Delivery Me thod Room Air Room Air 05/10/23 15:36 05/10/23 21:28 05/11/23 05:44 Temperature 36.5 F L 98.3 F 98.4 F Pulse Rate [Pulse Oximeter] 72 79 77 Respiratory Rate 16 18 18 Blood Pressure [Ri ght Arm] 138/82 142/71 H 131/90 H Pulse Oximetry 98 97 97 Oxygen Delivery Me thod Room Air Room Air Room Air OB - DS: Summary Hospital Course Hospital Course: Hospital Course: Nona was admitted to the hospital on 05/07/2023 for a scheduled early labor and severe preeclampsia by blood pressure criteria. She was started on magnesium for seizure prophylaxis. She was given 2 doses of IV labetalol for blood pressure control. Her delivery and course was uncomplicated. Her blood pressure was somewhat elevated overnight so I increased her nifedipine from 30 mg daily to 60 mg daily and recommended that she be seen in the clinic on Monday or Sunday 05/14 or 05/16/2023. She would like to be discharged home today. Labs: Pre delivery hemoglobin 12.8, post delivery hemoglobin 9.8. Objective: General: Alert and oriented x3. Pleasant, woman in no acute distress. Vital signs: See EMR. Heart: Regular rate and rhythm without gallop, rub or murmur. Chest: Clear to auscultation bilaterally. Abdomen: Soft, nontender, nondistended with normal bowel sounds throughout. Fundus firm at 2 cm below the umbilicus in the midline No CVA or flank tenderness. Pelvic: Minimal vaginal bleeding, remainder of pelvic exam deferred. Extremities: No pain, edema, cyanosis or clubbing. Assessment: 28-year-old day 3 from an , severe preeclampsia. Plan: 1. Discharge home today. 2. Activity restrictions reviewed with the patient. Nothing vaginally for 6 weeks otherwise no restrictions. 3. Return to clinic for blood pressure check next week. [place] Infant Gender: Male Time Spent with Patient Time attestation: Total time spent providing and/or coordinating discharge services: Discharge Plan Discharge Disposition: Home, Self-Care Date of Admission: 05/07/23 16:42 Attending Provider on Discharge: Jael Edmondson Consulting Providers: Jael Edmondson Primary Care Provider: Maya Keating Condition: Stable Anticipated Discharge Date/Time: 05/11/23 07:24 Discharge Medications: New docusate sodium 100 mg Capsule 100 mg PO BID PRNQty: 100 0RF ibuprofen 600 mg Tablet 600 mg PO Q6H PRNQty: 30 0RF nifedipine 30 mg Tablet Extended Release 24hr 60 mg PO DAILY Qty: 120 0RF Continued clindamycin-benzoyl peroxide 1-5 % gel 1 applic topical PRN PRN Patient Comments: Apply topically to affected area(s) 2 times daily. prenat.vits,celsa,pes-vwts-pjozd Tablet 1 tab PO QDAY calcium carb,lactat-vitamin D3 200 mg-6.25 mcg (250 unit) tablet 1 tab PO DAILY Discharge Orders: Discharge Order (Routine); Ordered 05/11/23 Ordered By: Jael Edmondson Patient Education: Preeclampsia During (DC) Additional Instructions: ACTIVITY RESTRICTIONS: Nothing vaginally for 6 weeks: no tampons/intercourse No driving while taking narcotic pain medication during the day. 1-2 weeks. Okay to be the passenger anytime. Lifting restriction: Maximum of 20 pounds for 6 weeks. High impact or core exercises: 6 weeks. Submerge the incision in water (bath/pool/hoover): 2 weeks. Off of work/school for a minimum of 8 weeks NO RESTRICTIONS for: Walking Going up/down stairs Showering Symptoms to report to doctor: -Bleeding that saturates more than one pad per hour ?-Passing clots larger than the size of a golf ball ?-Pain not relieved by prescribed medication ?-Fever above 100.4 degrees Fahrenheit ?-A foul vaginal odor ?-Difficulty in emotions, mood and functions ?-Thoughts of hurting yourself and/or ?-Painful, reddened area in your breast ?-Any drainage, redness or tenderness in your IV/epidural site ?-Severe headache that doesn't improve after taking medications ?-Changes in vision, including temporary loss of vision, blurred vision, and/or light sensitivity ?-Upper abdominal pain (usually under ribs on the right side) ?-Decrease in urination or painful, frequent urinating ?-Chest pain ?-Shortness of breath ?-Tenderness or pain with redness and/swelling in the calf(s) of your leg Follow-up: [facility]. [facility] for a blood pressure check. 2. 2 week visit for evaluation of anxiety/depression, contraceptive discussion and answering questions. 3. A 6 week visit for an annual physical exam. consultation services are available to all mothers and babies for the first year after delivery.? To make an appointment, please call [phone]. Discharge Diet: Regular Follow Up Appointments: [facility] [Provider Group] Maya Keating MD [Primary Care Provider] - Forms: [employer] Info Instructions
[2023-05-11 07:55] VITALS: BP 138/82; PULSE 77; RESP 18; TEMP 36.9; O2SAT 97
[2023-05-11] MEDS: IBUPROFEN 600 MG TABLET PO (08:37)
[2023-05-11] MEDS: DOCUSATE SODIUM 100 MG CAPSULE PO (08:38)
== END 2023-05-11 11:00 | disposition home or self-care (01) | DRG 560 ==
LOC: OB OUT 16:42 → OB 16:42
PROVIDERS: Advanced Practice Midwife; Admitting Provider Advanced Practice Midwife; PCP Family Medicine; Visit Provider Advanced Practice Midwife
DX: O14.14 Severe pre-eclampsia complicating childbirth (principal); O63.1 Prolonged second stage (of labor); O70.1 Second degree perineal laceration during delivery; O36.5930 Maternal care for other known or suspected poor fetal growth, third trimester, not applicable or unspecified; O99.12 Other diseases of the blood and blood-forming organs and certain disorders involving the immune mechanism complicating childbirth; D69.6 Thrombocytopenia, unspecified; R74.01 Elevation of levels of liver transaminase levels; Z3A.40 40 weeks gestation of pregnancy; Z37.0 Single live birth
CPT/HCPCS: 01967; 36415; 76815; 82565; 82570; 83735; 84156; 84450; 84460; 84520; 85027; 86592; 86850; 86900; 86901; 88307; A9270; J2001; J2371; J2795; J3475; J7120

== ENCOUNTER 2023-05-13 02:45 | Emergency (ER) | payer BC, SELFPAY ==
[2023-05-13 02:52] VITALS: BP 149/83; PULSE 102; RESP 18; TEMP 36.2; O2SAT 99; BMI 24.7
--- NOTE | 2023-05-13 03:27 | ED.HA ---
HPI - Headache General Chief Complaint: Headache/Migraine Stated Complaint: headache Time Seen by Provider: 05/13/23 03:09 History of Present Illness HPI Narrative: Patient is a 28-year-old woman who gave to her 1st child 4 days ago. She was preeclamptic and was treated here with [facility]. Please see inpatient record for further details. Patient is on long-acting nifedipine at home for preeclampsia blood pressures have been in the 145-155 range systolic and she has developed headache. No other neurologic symptoms no fevers chills assessment has no discharge no abdominal pain no chest pain or shortness of breath. Patient called the OB salazar and was told to come in for further evaluation. Patient is otherwise doing well. Headache is moderate and global. No photophobia nausea or vomiting. Related Data Home Medications Medication Instructions Recorded Confirmed clindamycin 1 %-benzoyl peroxide 5 1 applic topical PRN PRN 10/18/21 05/07/23 % topical gel prenat.vits,celsa,waw-pxug-fpspm 1 tab PO QDAY 10/18/21 05/07/23 calcium carb and lactate 200 1 tab PO DAILY 04/12/23 05/07/23 mg-vitamin D3 6.25 mcg (250 unit) tablet Previous Rx's Medication Instructions Recorded docusate sodium 100 mg capsule 100 mg PO BID PRN #100 caps 05/11/23 ibuprofen 600 mg tablet 600 mg PO Q6H PRN #30 tabs 05/11/23 nifedipine 30 mg tablet,extended 60 mg (2 x 30 mg) PO DAILY #120 05/11/23 release 24 hr tabs Allergies Allergy/AdvReac Type Severity Reaction Status Date / Time No Known Drug Allergies Allergy Verified 05/07/23 16:09 Review of Systems Status of ROS: Reports: 10 or more systems reviewed and unremarkable except as noted in History and below PFSH [facility] Medical History 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 Marital status: . Partner: Haritha: Search Engine Optimizer. Lives with: in [place]. Pets: None. Adventism/cultural needs: No. Chemical or radiation exposure: No. Pre- tobacco use: No. Pre- alcohol use: No. Current tobacco use: No. Current alcohol use: No. Recreational drug use: No. Dietary restrictions: Avoids dairy. Blood transfusion acceptable in an emergency: Yes. Planning to breastfeed: Yes. PSYCHOSOCIAL HISTORY: History of depression or currently depressed: No. Current physical, emotional, or sexual mistreatment: No. Problems that will make it hard to make it to appointments: No. What is your current living situation?: I presently have a place to live Problems where you live: no known problems In the past 12 months, utilities in danger of being shut off: no In past 12 months, lack of transportation kept you from medical appts, meetings, work, or getting things needed for daily living: no In the past 12 mos, have been you worried that your food would run out before you had money to buy more?: never true In the past 12 mos, the food you bought just didn't last and you didn't have money to buy more?: never true Smoking Status: Never smoker How often do you have a drink containing alcohol: never AUDIT-C Alcohol total score: 0 Non-prescribed substance use: denies use How often does anyone, including family, friends and others, physically hurt you: never How often does anyone, including family, friends and others, insult or talk down to you: never How often does anyone, including family, friends and others, threaten you with harm: never How often does anyone, including family, friends and others, scream or curse at you: never Little interest or pleasure in doing things: not at all Feeling down, depressed, or hopeless: not at all Exam Narrative: Exam Narrative: EXAM GENERAL: Patient appears comfortable and well. EYES: No scleral icterus. LYMPH: No supraclavicular or cervical lymphadenopathy. SKIN: Visible skin seen during exam normal or with benign process only. EXT: No dependent lower extremity pedal edema. HEART: Regular rate and rhythm with no murmurs, rubs, or gallops. LUNGS: Clear to auscultation bilaterally with no crackles or wheezes. ABD: Soft, non tender, non distended. PSYCH: Good eye contact, speech is not pressured. Const: Vital Signs, click to edit/add: Vital Signs - 24 hr 05/13/23 02:52 Temperature 97.1 F L Pulse Rate [Left P ulse Oximeter] 102 H Respiratory Rate 18 Blood Pressure [Ri ght Upper Arm] 149/83 H Pulse Oximetry 99 Oxygen Delivery Me thod Room Air Course Course ED Course: I did discuss the case with OB a call. The did recommend CBC CMP and normal to increase the nifedipine to 120 mg daily. Lab work pending. Vital Signs Vital signs: Initial Vital Signs Temperature 97.1 F L 05/13/23 02:52 Temperature Source Temporal Artery Scan 05/13/23 02:52 Pulse Rate 102 H 05/13/23 02:52 Pulse Rhythm Regular 05/13/23 02:52 Respiratory Rate 18 05/13/23 02:52 Blood Pressure 149/83 H 05/13/23 02:52 Blood Pressure Mean 105 05/13/23 02:52 Blood Pressure Position Semi-Fowlers 05/13/23 02:52 Pulse Oximetry 99 05/13/23 02:52 Oxygen Delivery Method Room Air 05/13/23 02:52 Vital Signs Temperature 97.1 F L 05/13/23 02:52 Pulse Rate 102 H 05/13/23 02:52 Respiratory Rate 18 05/13/23 02:52 Blood Pressure 149/83 H 05/13/23 02:52 Pulse Oximetry 99 05/13/23 02:52 Oxygen Delivery Method Room Air 05/13/23 02:52 Temperature 97.1 F L 05/13/23 02:52 Pulse Rate 102 H 05/13/23 02:52 Respiratory Rate 18 05/13/23 02:52 Blood Pressure 149/83 H 05/13/23 02:52 Pulse Oximetry 99 05/13/23 02:52 Oxygen Delivery Method Room Air 05/13/23 02:52 MDM - Headache MDM Narrative Medical decision making narrative: Patient is a 28-year-old 1st time Um 5 days after delivery presents with headache and continued elevation her blood pressure consistent with preeclampsia. I did discuss the case with OBBELLON at this time with stable platelets and reasonable blood pressure will increase her nifedipine to 120 mg daily. Laboratory studies are fairly stable stable platelets but she does have trending upward LFTs which I would recommend close follow-up. Differential diagnosis includes complication following delivery, preeclampsia, eclampsia number next organic hypertension. Lab Data Labs: Lab Results 05/13/23 Range/Units 03:30 WBC 9.36 (4.50-11.00) K/uL RBC 3.25 L (4.00-5.20) m/uL Hgb 10.6 L (12.0-16.0) gm/dL Hct 31.3 L (33.0-51.0) % MCV 96 (80-100) fL MCH 33 (26-34) pg MCHC 34 (32-36) gm/dL RDW Coeff of Julian 11.7 (11.5-15.5) % Plt Count 232 (140-440) K/uL Neut % (Auto) 73.8 H (42.0-72.0) % Lymph % (Auto) 13.8 L (20-44) % [place] % (Auto) 10.0 (0.0-11.0) % Eos % (Auto) 1.4 (0.0-7.0) % Baso % (Auto) 0.3 (0.0-3.0) % Neut # (Auto) 6.90 (1.7-7.0) K/uL Lymph # (Auto) 1.30 (0.90-2.90) K/uL [place] # (Auto) 0.90 (0.00-0.90) K/UL Eos # (Auto) 0.13 (0.00-0.50) K/uL Baso # (Auto) 0.03 (0.00-0.30) K/uL Abs Immat Gran (auto) 0.07 (0.00-0.30) K/uL Imm/Tot Granulo (auto) 0.7 % Sodium 137 (135-149) mmol/L Potassium 4.7 (3.6-5.1) mmol/L Chloride 105 (96-114) mmol/L Carbon Dioxide 28 (20-32) mmol/L Anion Gap 4 L (7-15) mEq/L BUN 22 (5-24) mg/dL Creatinine 0.7 (0.5-1.5) mg/dL Estimated Creat Clear 111.01 Estimated GFR 120 ml/min Glucose 90 (60-115) mg/dL Calcium 9.5 (8.4-10.6) mg/dL Total Bilirubin 0.3 (0.1-1.5) mg/dL AST 92 H (12-35) U/L ALT 158 H (4-35) U/L Alkaline Phosphatase 84 (40-150) U/L Total Protein 6.9 (6.0-8.3) g/dL Albumin 3.9 (3.3-5.0) g/dL Discharge Plan Discharge Clinical Impression: Pre-eclampsia Patient Disposition: Home, Self-Care Condition: Stable Instructions: Preeclampsia During (ED) Additional Instructions: Double dose of nifedipine Continue current management Follow-up with OBGYN this week for repeat liver function test. Activity Level: No Restrictions Discharge Diet: Regular Prescriptions: No Action clindamycin-benzoyl peroxide 1-5 % gel 1 applic topical PRN PRN Patient Comments: Apply topically to affected area(s) 2 times daily. prenat.vits,celsa,rxb-pqpx-zewnt Tablet 1 tab PO QDAY calcium carb,lactat-vitamin D3 200 mg-6.25 mcg (250 unit) tablet 1 tab PO DAILY docusate sodium 100 mg Capsule 100 mg PO BID PRNQty: 100 0RF ibuprofen 600 mg Tablet 600 mg PO Q6H PRNQty: 30 0RF nifedipine 30 mg Tablet Extended Release 24hr 60 mg PO DAILY Qty: 120 0RF Follow Up/Referrals: Maya Keating MD [Primary Care Provider] - Stand Alone Forms: [employer] Info Instructions
[2023-05-13 03:33] LABS: Basophils Absolute Auto 0.03 K/uL (0.00-0.30); Basophils Percent Auto 0.3 % (0.0-3.0); Eosinophils Absolute Auto 0.13 K/uL (0.00-0.50); Eosinophils Percent Auto 1.4 % (0.0-7.0); Hematocrit 31.3 % (33.0-51.0); Hemoglobin* 10.6 gm/dL (12.0-16.0); Immature Granulocytes Abs Auto 0.07 K/uL (0.00-0.30); Immature Granulocytes Pct Auto 0.7 %; Lymphocytes Percent Auto 13.8 % (20-44); Mean Corpuscular HGB Conc 34 gm/dL (32-36); Mean Corpuscular Hemoglobin 33 pg (26-34); Mean Corpuscular Volume 96 fL (80-100); Neutrophils Percent Auto 73.8 % (42.0-72.0); Platelet Count* 232 K/uL (140-440); RDW Coefficient of Variation % 11.7 % (11.5-15.5); Red Blood Count 3.25 m/uL (4.00-5.20); White Blood Count* 9.36 K/uL (4.50-11.00)
[2023-05-13 03:38] LABS: Slide Review Reflex No
[2023-05-13 03:46] LABS: Albumin* 3.9 g/dL (3.3-5.0); Chloride* 105 mmol/L (96-114)
[2023-05-13 03:47] LABS: Potassium* 4.7 mmol/L (3.6-5.1); Sodium* 137 mmol/L (135-149)
[2023-05-13 03:49] LABS: Alanine Aminotransferase* 158 U/L (4-35); Alkaline Phosphatase* 84 U/L (40-150); Anion Gap 4 mEq/L (7-15); Aspartate Amino Transferase* 92 U/L (12-35); Bilirubin Total* 0.3 mg/dL (0.1-1.5); Blood Urea Nitrogen* 22 mg/dL (5-24); Carbon Dioxide* 28 mmol/L (20-32); Creatinine* 0.7 mg/dL (0.5-1.5); Est. Creatinine Clearance* 111.01; Estimated Glomerular Filt Rate 120 ml/min; Glucose* 90 mg/dL (60-115); Total Protein* 6.9 g/dL (6.0-8.3)
[2023-05-13 03:50] LABS: Calcium* 9.5 mg/dL (8.4-10.6)
== END 2023-05-13 04:05 | disposition home or self-care (01) ==
PROVIDERS: Emergency Provider Internal Medicine; PCP Family Medicine
DX: O14.95 Unspecified pre-eclampsia, complicating the puerperium (principal)
CPT/HCPCS: 36415; 80053; 85025; 99283

== ENCOUNTER 2023-05-13 09:09 | Inpatient (IN) | payer BC, SELFPAY ==
[2023-05-13] VITALS (9 sets, daily range): BP systolic 125–157; BP diastolic 79–98; PULSE 75–103; RESP 16; TEMP 36.7–36.8; O2SAT 97–98; BMI 23.7
[2023-05-13] MEDS: LACTATED RINGERS 1000 ML 1,000 ML 75 ML IV (09:53)
[2023-05-13] MEDS: MAGNESIUM IV 4 GM/100 ML PIGGYBACK IVPB (09:53)
[2023-05-13] MEDS: ACETAMINOPHEN 500 MG TABLET 1000 MG PO ×2 (10:13→17:57)
[2023-05-13] MEDS: MAGNESIUM Infusion 40 GM/1,000 ML IV.SOLN IVPB (10:28)
[2023-05-13] MEDS: LABETALOL HCL 100 MG TABLET 200 MG PO ×2 (15:34→20:07)
--- NOTE | 2023-05-13 18:29 | PM.GYNHPNOR ---
CLINICAL RESEARCH SCIENTIST - H&P:HPI Medical History of Present Illness Time Seen by Provider: 12:00 Date Seen: 05/13/23 Narrative: Nona Mejia is a 28 year old female PPD#5 being readmitted for preeclampsia with severe features. She was previously admitted for scheduled early induction of labor due to preeclampsia with severe features based on severe ranging blood pressures requiring IV antihypertensive. She had an uncomplicated delivery and course. She did receive magnesium sulfate for seizure prophylaxis for 24 hours . She was discharged on day 3 on at nifedipine 60 mg extended release q.day. She reports that since discharge, her blood pressures have been ranging from 140s to 150s/80-90s. She presented to the emergency room last night due to persistent headache associated with vision changes and worsening right upper quadrant pain. She was discharged from the ED overnight with recommendation to increase her nifedipine to 60 mg Q12H. However, I reviewed her labs this morning at the beginning of my shift and recommended she be called back in for repeat magnesium sulfate for seizure ppx. 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 Patient denies fever, chills, chest pain, SOB, n/v, or dizziness. Meds Home Medications and Allergies Home Medications Medication Instructions Recorded Confirmed Type prenat.vits,celsa,ldk-dhmu-hukiz 1 tab PO QDAY 10/18/21 05/13/23 History calcium carb and lactate 200 1 tab PO DAILY 04/12/23 05/13/23 History mg-vitamin D3 6.25 mcg (250 unit) tablet Allergies Allergy/AdvReac Type Severity Reaction Status Date / Time No Known Drug Allergies Allergy Verified 05/07/23 16:09 [facility] Active Problems (Updated 05/13/23 @ 03:58 by All Lutz MD) Pre-eclampsia (Acute) ?O14.90 - Unspecified pre-eclampsia, unspecified trimester (ICD-10) Severe pre-eclampsia (Acute) ?O14.10 - Severe pre-eclampsia, unspecified trimester (ICD-10) Breech, gonzález (Acute) Resolved ?O32.1XX0 - Maternal care for breech presentation, not applicable or unspecified (ICD-10) Successful external cephalic version (Acute) Cephalic presentation confirmed by bedside US before discharge. IOL scheduled for 05/08/2023. 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 Marital status: . Partner: Haritha: Sales Operations Director. Lives with: in [place]. Pets: None. Baptism/cultural needs: No. Chemical or radiation exposure: No. Pre- tobacco use: No. Pre- alcohol use: No. Current tobacco use: No. Current alcohol use: No. Recreational drug use: No. Dietary restrictions: Avoids dairy. Blood transfusion acceptable in an emergency: Yes. Planning to breastfeed: Yes. PSYCHOSOCIAL HISTORY: History of depression or currently depressed: No. Current physical, emotional, or sexual mistreatment: No. Problems that will make it hard to make it to appointments: No. What is your current living situation?: I presently have a place to live Problems where you live: no known problems In the past 12 months, utilities in danger of being shut off: no In past 12 months, lack of transportation kept you from medical appts, meetings, work, or getting things needed for daily living: no In the past 12 mos, have been you worried that your food would run out before you had money to buy more?: never true In the past 12 mos, the food you bought just didn't last and you didn't have money to buy more?: never true Smoking Status: Never smoker How often do you have a drink containing alcohol: never AUDIT-C Alcohol total score: 0 Non-prescribed substance use: denies use How often does anyone, including family, friends and others, physically hurt you: never How often does anyone, including family, friends and others, insult or talk down to you: never How often does anyone, including family, friends and others, threaten you with harm: never How often does anyone, including family, friends and others, scream or curse at you: never Little interest or pleasure in doing things: not at all Feeling down, depressed, or hopeless: not at all Reproductive Health History Date of last pap smear: 09/28/2020; NIL History of abnormal pap smear: No : 3 Para: 1 # of abortions spontaneous: 2 History of multiple gestations: No History of ectopic pregnancies: No History of sexually transmitted diseases: No Treatment for infertility: No CLINICAL RESEARCH SCIENTIST - Exam Physical Exam: Vital signs: Temp Pulse Resp BP Pulse Ox 98.0 F 75 16 125/84 98 05/13/23 17:20 05/13/23 17:20 05/13/23 17:20 05/13/23 17:20 05/13/23 17:20 Narrative: Physical exam: General: No acute distress. Fatigued-appearing Psych: Alert and oriented x4, full affect HEENT: Normocephalic, atraumatic Heart: Regular rate and rhythm, no murmur rub or gallop Lungs: Clear to auscultation bilaterally Abdomen: Normoactive bowel sounds, soft, no tenderness, rebound, or guarding. Fundus 3 cm below the umbilicus Skin: No lesions or rashes Lower extremities: 1+ bilateral lower extremity edema Pelvic exam: Deferred Assessment and Plan Assessment and plan (1) Severe pre-eclampsia: Status: Acute Plan Postoperative/post delivery Review: - Admitted for: Preeclampsia with severe features. Worsening. - Incision/laceration: Second-degree laceration. No issues. - Estimated blood loss: 400 mL Pre-Eclampsia with severe features - Based on severe ranging blood pressures requiring IV antihypertensive initially. Currently, severe feature is based on ALT and AST twice the upper limit of normal. - BPs 130-150s/80-90s - Symptoms: headaches, visual disturbances, RUQ pain - Magnesium: on Magnesium for seizure ppx. - IV antihypertensives: currently unindicated - PO antihypertensives: Nifedipine 60 mg QD --> Nifedipine 60 mg Q12H, Labetalol 200 mg TID - Pre-eclampsia labs on 05/13/23: Hgb 10.6 Plt 232 Cr 0.7 ALT 158 AST 92 - UOP: 1.00 cc/kg/hr - Plan: Will reassess need for continued mag sulfate after 12 hours Postoperative care: - Diet: Advance as tolerated - Fluid: Encourage oral intake - Activity: Encourage ambulation and incentive spirometry - Pain: Acetaminophen, Ibuprofen - DVT prophylaxis: ambulation Dispo: Patient is POD#5. Need the following milestones: off mag and optimize BP control. Anticipate discharge POD#6-7.
[2023-05-13] MEDS: NIFEdipine 30 MG TAB.ER.24 60 MG PO (20:08)
[2023-05-14 00:17] VITALS: BP 112/69; PULSE 70; RESP 16; TEMP 36.6; O2SAT 98
[2023-05-14] MEDS: ACETAMINOPHEN 500 MG TABLET 1000 MG PO (03:54)
[2023-05-14 04:01] VITALS: BP 121/80; PULSE 79; RESP 16; TEMP 36.6; O2SAT 98
[2023-05-14 06:56] LABS: Hematocrit 31.6 % (33.0-51.0); Hemoglobin* 10.6 gm/dL (12.0-16.0); Mean Corpuscular HGB Conc 34 gm/dL (32-36); Mean Corpuscular Hemoglobin 32 pg (26-34); Mean Corpuscular Volume 96 fL (80-100); Platelet Count* 247 K/uL (140-440); Red Blood Count 3.31 m/uL (4.00-5.20); White Blood Count* 8.25 K/uL (4.50-11.00)
[2023-05-14 07:01] LABS: Slide Review Reflex No
[2023-05-14 07:17] LABS: Aspartate Amino Transferase* 55 U/L (12-35); Creatinine* 0.8 mg/dL (0.5-1.5); Est. Creatinine Clearance* 97.13; Estimated Glomerular Filt Rate 102 ml/min
[2023-05-14 07:18] LABS: Alanine Aminotransferase* 111 U/L (4-35); Blood Urea Nitrogen* 20 mg/dL (5-24)
[2023-05-14 08:03] VITALS: BP 122/75; PULSE 69; RESP 16; TEMP 36.8; O2SAT 96
[2023-05-14] MEDS: LABETALOL HCL 100 MG TABLET 200 MG PO (08:45)
[2023-05-14] MEDS: NIFEdipine 30 MG TAB.ER.24 60 MG PO (08:45)
--- NOTE | 2023-05-14 11:19 | W.PM.OB.MED ---
DS: Providers Provider Time Seen by Provider: : Date Seen: 05/14/23 Date of admission: 05/13/23 09:09 Primary care physician: Maya Keating MD Admitting Clinician: Jojo Duff MD Attending Physician on discharge: Jojo Duff MD Date of Discharge: 05/14/23 DS: Diagnosis Discharge Diagnosis (1) Severe pre-eclampsia: Status: Acute Discharge Plan Discharge Disposition: Home, Self-Care Date of Admission: 05/13/23 09:09 Primary Care Provider: Maya Keating Condition: Stable Anticipated Discharge Date/Time: 05/14/23 11:19 Discharge Medications: New acetaminophen 500 mg Tablet 1,000 mg PO Q6H PRN (Reason: pain/fever) 14 Days Qty: 30 0RF nifedipine 30 mg Tablet Extended Release 24hr 60 mg PO BID 30 Days Qty: 120 0RF labetalol 100 mg Tablet 200 mg PO TID 30 Days Qty: 180 0RF Continued prenat.vits,celsa,ncz-mlpf-cayhn Tablet 1 tab PO QDAY calcium carb,lactat-vitamin D3 200 mg-6.25 mcg (250 unit) tablet 1 tab PO DAILY docusate sodium 100 mg Capsule 100 mg PO BID PRNQty: 100 0RF ibuprofen 600 mg Tablet 600 mg PO Q6H PRNQty: 30 0RF Discontinued nifedipine 30 mg Tablet Extended Release 24hr 60 mg PO DAILY Qty: 120 0RF Discharge Orders: Discharge Order (Routine); Ordered 05/14/23 Ordered By: Jojo Duff Consulting provider completed their portion of the discharge: Yes Patient Education: Preeclampsia and Eclampsia After Delivery (GEN) Follow Up Appointments: Maya Keating MD [Primary Care Provider] - Forms: [facility] Info Instructions Hospital Course Course Hospital Course: Nona Mejia is a 28 year old female PPD#6 who was readmitted for preeclampsia with severe features. She received an additional 12 hours of magnesium sulfate and her antihypertensive medications were adjusted. Overnight patient had no complications. Her pain is well controlled on oral pain medications. She still has right upper quadrant pain but has significantly improved. She no longer has vision changes with her headaches. She has a mild headache that she rates as 1/10 and feels it's associated with fatigue. She is tolerating a regular diet. She has had a bowel movement. She is ambulating without difficulty. Lochia is scant. She is urinating without rey. Patient denies chest pain, SOB, n/v, or dizziness. She is stable and appropriate for discharge on day 6. Postoperative/post delivery Review: - Admitted for: Preeclampsia with severe features. Worsening. - Incision/laceration: Second-degree laceration. No issues. - Estimated blood loss: 400 mL Pre-Eclampsia with severe features - Based on severe ranging blood pressures requiring IV antihypertensive initially. Currently, severe feature is based on ALT and AST twice the upper limit of normal. - BPs 130-150s/80-90s - Symptoms: headaches, visual disturbances, RUQ pain - Magnesium: on Magnesium for seizure ppx. - IV antihypertensives: currently unindicated - PO antihypertensives: Nifedipine 60 mg QD --> Nifedipine 60 mg Q12H, Labetalol 200 mg TID - Pre-eclampsia labs on 05/13/23: Hgb 10.6 Plt 232 Cr 0.7 ALT 158 AST 92 - Pre-eclampsia labs on 05/14/23: Hgb 10.6 Plt 247 Cr 0.8 ALT 111 AST 55 - UOP: 2.18 cc/kg/hr - Plan: Will keep on antihypertensive medication. Adjust as needed at clinic checks. Postoperative care: - Diet: Advance as tolerated - Fluid: Encourage oral intake - Activity: Encourage ambulation and incentive spirometry - Pain: Acetaminophen, Ibuprofen - DVT prophylaxis: ambulation Labs Labs: Laboratory Tests 05/14/23 Range/Units 06:38 WBC 8.25 (4.50-11.00) K/uL RBC 3.31 L (4.00-5.20) m/uL Hgb 10.6 L (12.0-16.0) gm/dL Hct 31.6 L (33.0-51.0) % MCV 96 (80-100) fL MCH 32 (26-34) pg MCHC 34 (32-36) gm/dL Plt Count 247 (140-440) K/uL BUN 20 (5-24) mg/dL Creatinine 0.8 (0.5-1.5) mg/dL Estimated Creat Clear 97.13 Estimated GFR 102 ml/min AST 55 H (12-35) U/L ALT 111 H (4-35) U/L OB Problem List Additional Plan (1) Severe pre-eclampsia: Status: Acute DS: Summary Vital Signs Vital Signs: Vital Signs Temp Pulse Pulse Resp BP BP Pulse Ox 05/14/23 08:03 98.2 F 69 16 122/75 96 05/14/23 04:01 97.8 F 79 16 121/80 98 05/14/23 00:17 97.9 F 70 16 112/69 98 05/13/23 20:01 98.2 F 80 16 138/80 98 05/13/23 17:20 98.0 F 75 16 125/84 98 05/13/23 14:10 78 16 153/89 H 98 O2 Del Method 05/14/23 08:03 Room Air 05/14/23 04:01 Room Air 05/14/23 00:17 Room Air 05/13/23 20:01 Room Air 05/13/23 17:20 05/13/23 14:10 Discharge Examination Physical Examination findings: Physical exam: General: No acute distress. Fatigued-appearing Psych: Alert and oriented x4, full affect HEENT: Normocephalic, atraumatic Heart: Regular rate and rhythm, no murmur rub or gallop Lungs: Clear to auscultation bilaterally Abdomen: Normoactive bowel sounds, soft, no tenderness, rebound, or guarding. Fundus 3 cm below the umbilicus Skin: No lesions or rashes Lower extremities: 1+ bilateral lower extremity edema Pelvic exam: Deferred
== END 2023-05-14 12:15 | disposition home or self-care (01) | DRG 561 ==
PROVIDERS: Admitting Provider Obstetrics & Gynecology; PCP Family Medicine; Visit Provider Obstetrics & Gynecology
DX: O14.15 Severe pre-eclampsia, complicating the puerperium (principal)
CPT/HCPCS: 36415; 80053; 82565; 84450; 84460; 84520; 85025; 85027; 99283; A9270; J3475; J7120

== ENCOUNTER 2023-05-17 11:04 | Outpatient (CLI) | payer BC, SELFPAY | END 2023-05-17 11:05 | disposition home or self-care (01) | PROVIDERS: PCP Family Medicine; Visit Provider Obstetrics & Gynecology | DX: O14.10 Severe pre-eclampsia, unspecified trimester (principal) | CPT/HCPCS: 82565; 84450; 84460 ==